=== PATIENT | female | born 1945 | race Caucasian/White ===

== ENCOUNTER 2017-05-17 20:41 | Emergency (ER) | payer MEDICARE, OTHER ==
[2017-05-17 20:55] VITALS: TEMP 98.5
--- NOTE | 2017-05-17 22:28 | PDOC ---
History of Present Illness - General History Source: Patient Exam Limitations: No Limitations - History of Present Illness Initial Comments: The patient is a 71 yo F with a PMHx significant for HTN, dementia, HLD, cervical cancer (2005), and lymphoma (2007) who presents with a nonproductive cough for a few days. The patient is a poor historian secondary to dementia. The patients family also notes the patient has been complaining of paroxysmal chest pain, palpitations and dizziness for the past 2 months. The patients family states the patient is less active than her baseline. The pt has also bene having a mild cough that was worsening over the past 2 days, it is nonproductive. As per the patients family, the patient has a home health aide. The patient denies fevers and chills. The patient denies nausea, vomiting, diarrhea and abdominal pain. The patient denies dysuria, hematuria, urgency and frequency. Family Hx: brain CA PCP: Dr. Larry Camara <Eliza Carter - Last Filed: 05/17/17 23:27> <Diana Lange - Last Filed: 05/18/17 06:09> <Sebastien Pavon - Last Filed: 05/18/17 16:18> - General Chief Complaint: Respiratory Stated Complaint: COUGH Time Seen by Provider: 05/17/17 22:16 Past History <Eliza Carter - Last Filed: 05/17/17 23:27> <Diana Lange - Last Filed: 05/18/17 06:09> - Past Medical History Anemia: No Asthma: No Cancer: Yes (S/P SPINE AND PELVIC CANCER.) Cardiac Disorders: No (RX 7 YEARS AGO) CVA: No COPD: No CHF: No Dementia: No Diabetes: No GI Disorders: No Disorders: No HTN: No Hypercholesterolemia: No Liver Disease: No Seizures: No Thyroid Disease: No - Surgical History Appendectomy: No Cholecystectomy: No Neurologic Surgery: Yes (2 SPINAL SURGERIES) Orthopedic Surgery: Yes - Psycho/Social/Smoking Cessation Hx Anxiety: No Suicidal Ideation: No Smoking Status: No Smoking History: Never smoked Have you smoked in the past 12 months: No Number of Cigarettes Smoked Daily: 0 Hx Alcohol Use: No Drug/Substance Use Hx: No Substance Use Type: None Hx Substance Use Treatment: No <Sebastien Pavon - Last Filed: 05/18/17 16:18> - Past Medical History Allergies/Adverse Reactions: Allergies Allergy/AdvReac Type Severity Reaction Status Date / Time No Known Drug Allergies Allergy Verified 05/17/17 20:53 Home Medications: Ambulatory Orders Acetaminophen [Tylenol .Extra-Strength -] 500 mg PO Q4H 05/17/15 Oxycodone HCl 15 mg PO PRN PRN 05/17/15 Oxycodone HCl [Roxicodone -] 10 mg PO Q6H PRN #60 tablet 05/19/15 Pantoprazole Sodium [Protonix] 40 mg PO DAILY #60 tablet. 05/19/15 Atorvastatin Ca [Lipitor] 40 mg PO HS 05/17/17 Ezetimibe [Zetia -] 10 mg PO DAILY 05/17/17 Metoprolol Tartrate [Lopressor -] 25 mg PO BID 05/17/17 Omeprazole 20 mg PO DAILY 05/17/17 Review of Systems - Review of Systems Able to Perform ROS?: Yes Comments:: ROS is limited secondary to patient's dementia. Constitutional - +generalized weakness. Pt denies Fever, Chills HEENT: denies vision changes, sore throat Respiratory: +cough Denies sob, hemoptysis Cardiac: +chest pain, palpitations and lightheadedness. denies leg swelling Abd/GI: denies abd pain, nausea, vomiting, blood per rectum, melena, diarrhea : denies dysuria, frequency, discharge Musculskelatal - denies back pain, joint swelling skin - denies bruising, erythema, rash neurological: denies headache, numbness, focal weakness, tingling, ataxia, weakness hematologic: denies anemia, easy bruising, easy bleeding <Sermania,Eliza - Last Filed: 05/17/17 23:27> *Physical Exam - Vital Signs Last Vital Signs Temp Pulse Resp BP Pulse Ox 98.5 F 106 H 20 134/73 100 05/17/17 20:53 05/17/17 20:53 05/17/17 20:53 05/17/17 20:53 05/17/17 20:53 - Physical Exam Comments: GENERAL: The patient is awake, alert, Nontoxic - in no acute distress. HEAD: Normocephalic, atraumatic. EYES: extraocular movements intact, sclera anicteric, conjunctiva clear. ENT: Normal voice, Moist mucous membranes. NECK: Normal range of motion, supple without lymphadenopathy, JVD, or masses. LUNGS: scant basilar crackles. No wheezes or rales, no acute respiratory distress HEART: Regular rate and rhythm, normal S1 and S2 without murmur, rub or gallop. ABDOMEN: Soft, nontender, normoactive bowel sounds. No guarding, no rebound. No masses. EXTREMITIES: Normal range of motion, no edema. No clubbing or cyanosis. No cords, erythema, or tenderness. NEUROLOGICAL: No facial assymetry, Normal speech, normal gait. PSYCH: Normal mood, normal affect. SKIN: Warm, Dry, normal turgor, no rashes or lesions noted. <Eliza Carter - Last Filed: 05/17/17 23:27> - Vital Signs Last Vital Signs Temp Pulse Resp BP Pulse Ox 98.5 F 106 H 20 134/73 100 05/17/17 20:53 05/17/17 20:53 05/17/17 20:53 05/17/17 20:53 05/17/17 20:53 <Diana Lange - Last Filed: 05/18/17 06:09> - Vital Signs Last Vital Signs Temp Pulse Resp BP Pulse Ox 98.5 F 106 H 20 134/73 100 05/17/17 20:53 05/17/17 20:53 05/17/17 20:53 05/17/17 20:53 05/17/17 20:53 <Sebastien Pavon - Last Filed: 05/18/17 16:18> Heart Score/ECG Review - ECG Impressions Comment:: 05/17/17 23:17 Twelve-lead EKG was performed and reviewed by me. There is normal sinus rhythm with a normal rate. Rate of 100 The intervals are normal. Nonspecific T wave abnormality <Sebastien Pavon - Last Filed: 05/18/17 16:18> ED Treatment Course - LABORATORY CBC & Chemistry Diagram: 05/17/17 23:40 05/17/17 23:40 - ADDITIONAL ORDERS Additional order review: Laboratory Results 05/18/17 05/17/17 05:00 23:40 Sodium 140 Potassium 4.1 Chloride 102 Carbon Dioxide 27 Anion Gap 11 BUN 22 H D Creatinine 0.8 D Creat Clearance w eGFR > 60 Random Glucose 140 H D Calcium 8.6 Total Bilirubin 0.2 AST 17 D ALT 23 D Alkaline Phosphatase 56 D Creatine Kinase 87 68 Troponin I < 0.02 < 0.02 Total Protein 6.0 L Albumin 3.2 L 05/17/17 23:40 RBC 3.94 D MCV 92.4 MCHC 33.4 RDW 15.6 D MPV 8.4 Neutrophils % 78.7 Lymphocytes % 12.9 D Monocytes % 5.9 Eosinophils % 2.3 D Basophils % 0.2 - RADIOLOGY Radiology Studies Ordered: Category Date Time Status CHEST PA & LAT [RAD] Stat Radiology 05/17/17 22:09 Taken - Medications Given in the ED: ED Medications Discontinued Medications Generic Name Dose Route Start Last Admin Trade Name Lee PRN Reason Stop Dose Admin Sodium Chloride 500 mls @ 500 mls/hr 05/17/17 22:51 05/17/17 23:44 Normal Saline - IV 05/17/17 23:50 500 mls/hr ASDIR STA Administration <Diana Lange - Last Filed: 05/18/17 06:09> - LABORATORY CBC & Chemistry Diagram: 05/17/17 23:40 05/17/17 23:40 <Sebastien Pavon - Last Filed: 05/18/17 16:18> Medical Decision Making - Medical Decision Making 05/17/17 23:00 71y F hx of dementia, htn, hl, hx of previous cervical ca, lymphoma in remote past presents with worsening nonproductive cough for a few days. Family also notes that she occasionally complaints of chest pain on the right side, she has not followed up with her PMD because she refuses. No associated fever/chills, hemoptysis, leg swelling. on exam the pt appars well, in no distress. lungs reeals mild scant rales at the bases. will r/o pna with cxr will obtain bsaic blood work, ekg screening ekg/troponin A portion of this note was documented by scribe services under my direction. I have reviewed the details of the note, within reason, and agree with the documentation with the following case summary and management plan written by me 05/18/17 01:45 Pts labs reviewed unremarkable pt current comfortable. awaitng 2nd troponin at 3am if neg, will dc the pt with zpac and pmd fu case signed out to dr. lange to fu with results and reassess the pt <Sebastien Pavon - Last Filed: 05/18/17 16:18> *DC/Admit/Observation/Transfer - Attestations Scribe Attestion: Documentation prepared by Eliza Carter, acting as medical lab tech instructor for Sebastien Pavon MD, MD/DO. <Eliza Carter - Last Filed: 05/17/17 23:27> - Discharge Dispostion Admit: No <Diana Lange - Last Filed: 05/18/17 06:09> <Sebastien Pavon - Last Filed: 05/18/17 16:18> Diagnosis at time of Disposition: Chest pain, Cough - Discharge Dispostion Disposition: HOME Condition at time of disposition: Stable - Referrals Referrals: Larry Camara [Primary Care Provider] - - Patient Instructions Printed Discharge Instructions: DI for Cough -- Adult
[2017-05-17] MEDS ORDERED: SODIUM CHLORIDE 500 ML IV STA (22:51)
[2017-05-17 23:44] LABS: BASOPHIL 0.2 % (0-2.0); EOSINOPHIL 2.3 % (0-4.5); MCH 30.8 pg (25.7-33.7); MCHC 33.4 g/dl (32.0-36.0); MEAN CELL VOLUME 92.4 fl (80-96); MEAN PLT VOLUME 8.4 fl (7.5-11.1); NEUTROPHILS 78.7 % (42.8-82.8); PLATELET COUNT 207 K/MM3 (134-434); RDW 15.6 % (11.6-15.6)
[2017-05-18 00:46] LABS: ALBUMIN 3.2 g/dl (3.4-5.0); ANION GAP 11 (8-16); BILIRUBIN,TOTAL 0.2 mg/dL (0.2-1.0); CALCIUM 8.6 mg/dL (8.5-10.1); CO2 27 mmol/L (21-32); CREATININE 0.8 mg/dL (0.55-1.02); GLUCOSE,RANDOM 140 mg/dL (74-106); SGPT/ALT 23 U/L (12-78)
[2017-05-18 00:49] LABS: ALK PHOS 56 U/L (45-117); CPK 68 IU/L (26-192); TROPONIN I < 0.02 ng/ml (0.00-0.05)
[2017-05-18 00:52] LABS: SGOT/AST 17 U/L (15-37)
[2017-05-18 05:55] LABS: TROPONIN I < 0.02 ng/ml (0.00-0.05)
[2017-05-18 05:56] LABS: CPK 87 IU/L (26-192)
[2017-05-18 06:24] VITALS: BP 128/57; PULSE 90
--- NOTE | 2017-05-18 12:53 | EKG ---
Test Reason : Blood Pressure : / mmHG Vent. Rate : 100 BPM Atrial Rate : 100 BPM P-R Int : 164 ms QRS Dur : 078 ms QT Int : 356 ms P-R-T Axes : 028 -15 009 degrees QTc Int : 459 ms NORMAL SINUS RHYTHM NONSPECIFIC T WAVE ABNORMALITY ABNORMAL ECG WHEN COMPARED WITH ECG OF 25-DEC-2013 12:41, T WAVE INVERSION NOW EVIDENT IN ANTERIOR LEADS Confirmed by MEME ALVARADO, MILLA ([id number]) on 05/18/2017 12:52:50 PM Referred By: Confirmed By:MILLA VALENTINE MD
== END 2017-05-18 06:32 | disposition home or self-care (01) ==
LOC: JER 20:41
PROC: 3E0337Z Introduction of Electrolytic and Water Balance Substance into Peripheral Vein, Percutaneous Approach (ICD-10-PCS; principal; 2017-05-17)
DX: R07.89 Other chest pain (principal); I10 Essential (primary) hypertension; F03.90 Unspecified dementia, unspecified severity, without behavioral disturbance, psychotic disturbance, mood disturbance, and anxiety; E78.00 Pure hypercholesterolemia, unspecified; Z85.41 Personal history of malignant neoplasm of cervix uteri; Z85.72 Personal history of non-Hodgkin lymphomas
CPT/HCPCS: 36415; 71020-TC; 80053; 84484; 85025; 93005; 93010; 96360; 99282-25

== ENCOUNTER 2020-06-02 18:49 | Inpatient (IN) | payer MEDICARE, OTHER ==
[2020-06-02 19:24] VITALS: BMI 21.4
--- NOTE | 2020-06-02 19:29 | PDOC ---
History of Present Illness - General Chief Complaint: Lightheaded Stated Complaint: WEAKNESS - History of Present Illness Initial Comments: 74 yo female with PMH of HTN, HLD, cervical cancer BIBEMS for a syncopal episode. Son says she was being helped walking back from the bathroom when she lost consciousness. She was unconscious for 1 minute, did not shake, did not have bowel/bladder incontinence, returned to baseline. She was held up by her son and did not hit her head or lose consciousness. She endorses abdominal pain with meals which had lead to poor oral intake. She endorses sob and nausea. She denies fevers, chills, martinez, cp, dysuria. She was seen earlier today at [facility] for headache and lethargy where she was given iv fluids and tylenol. Past History - Medical History Allergies/Adverse Reactions: Allergies Allergy/AdvReac Type Severity Reaction Status Date / Time No Known Drug Allergies Allergy Verified 05/17/17 20:53 Home Medications: Ambulatory Orders Acetaminophen [Tylenol .Extra-Strength -] 500 mg PO Q4H PRN 05/17/15 Pantoprazole Sodium [Protonix] 40 mg PO DAILY #60 tablet. 05/19/15 oxyCODONE HCL [Roxicodone -] 10 mg PO Q6H PRN #60 tablet 05/19/15 Atorvastatin Ca [Lipitor] 40 mg PO HS 05/17/17 Ezetimibe [Zetia -] 10 mg PO DAILY 05/17/17 Ascorbic Acid [Vitamin C -] 500 mg PO BID #28 tablet 01/22/20 Cholecalciferol (Vitamin D3) [Vitamin D3 -] 1,000 unit PO DAILY #28 tab 01/22/20 Zinc Sulfate [Orazinc -] 220 mg PO BID #28 capsule 01/22/20 Apixaban [Eliquis -] 2.5 mg PO BID #28 tablet 01/24/20 Tamsulosin HCl [Flomax -] 0.4 mg PO BID #60 cap.er.24h 01/24/20 Anemia: No Asthma: No Cancer: Yes (S/P SPINE AND PELVIC CANCER.; cervical CA) Cardiac Disorders: No (RX 7 YEARS AGO) CVA: No COPD: No CHF: No Dementia: No Diabetes: No GI Disorders: No Disorders: No HTN: No Hypercholesterolemia: No Liver Disease: No Seizures: No Thyroid Disease: No - Surgical History Abdominal Surgery: No Appendectomy: No Cardiac Surgery: No Cholecystectomy: No Lung Surgery: No Neurologic Surgery: Yes (2 SPINAL SURGERIES) Orthopedic Surgery: Yes - Reproductive History Is Patient Now?: No - Psycho-Social/Smoking History Smoking Status: No Smoking History: Unknown if ever smoked Have you smoked in the past 12 months: No Number of Cigarettes Smoked Daily: 0 - Substance Abuse Hx (Audit-C & DAST Scrn) How often the patient has a drink containing alcohol: Never Score: In Men: 4 or > Positive; In Women: 3 or > Positive: 0 Screen Result (Pos requires Nsg. Audit-10AR): Negative In the last yr the pt used illegal drug/Rx for NonMed reason: No Score: Yes response is considered Positive: 0 Screen Result (Positive result requires Nsg. DAST-10): Negative Review of Systems - Review of Systems Able to Perform ROS?: Yes (son translated) Constitutional: No: Chills, Fever HEENTM: No: Recent change in vision, Double Vision Respiratory: Yes: Shortness of Breath. No: Cough Cardiac (ROS): Yes: Lightheadedness, Syncope. No: Chest Pain, Palpitations, Chest Tightness ABD/GI: Yes: Poor Appetite, Poor Fluid Intake. No: Diarrhea, Vomiting : No: Burning, Dysuria, Hematuria Musculoskeletal: No: Joint Pain, Muscle Pain Integumentary: No: Dryness, Erythema, Flushing Neurological: No: Headache, Numbness, Tingling, Dizziness Psychiatric: No: Anxiety, Depression, Mood Swings Endocrine: No: Intolerance to Cold, Intolerance to Heat Hematologic/Lymphatic: No: Anemia, Easy Bruising *Physical Exam - Vital Signs Last Vital Signs Temp Pulse Resp BP Pulse Ox 98.1 F 94 H 18 97/62 98 06/02/20 19:21 06/02/20 19:21 06/02/20 19:21 06/02/20 19:21 06/02/20 19:21 - Physical Exam General Appearance: Yes: Appropriately Dressed. No: Apparent Distress HEENT: positive: Normal Voice. negative: EOMI Neck: negative: Tender, Rigid Respiratory/Chest: positive: Lungs Clear, Normal Breath Sounds. negative: Respiratory Distress Cardiovascular: positive: Regular Rhythm, Regular Rate, S1, S2. negative: Edema, JVD, Murmur Gastrointestinal/Abdominal: positive: Flat, Soft. negative: Tender Musculoskeletal: positive: Normal Inspection. negative: CVA Tenderness Extremity: positive: Normal Capillary Refill, Normal Inspection, Normal Range of Motion Integumentary: positive: Normal Color, Dry, Warm Neurologic: positive: hog killer II-XII NML intact, Fully Oriented, Alert, Normal Mood/Affect, Motor Strength 01/31 ED Treatment Course - LABORATORY CBC & Chemistry Diagram: 06/02/20 16:04 06/02/20 23:34 Medical Decision Making - Medical Decision Making 74 yo female with PMH of HTN, HLD, Cervical Cancer presents after a syncopal episode with poor oral intake. DDx: orthostatic hypotension, cardiac etiology, stroke, tia NIH Stroke = 0 EKG: normal axis, normal intervals, regular rate and rhythm. WBC 13.4 Creatinine 2.1 UA- positive LE, positive Nitrites, positive bacteria CT Head/Cervical- no acute processes Chest Xray- no acute processes Tx: -750mL IV fluids - 1gram IV ceftriaxone Admitted: UTI, LUCILLE, Syncope, Poor Oral Intake 06/03/20 01:44 Discharge - Discharge Information Problems reviewed: Yes Clinical Impression/Diagnosis: UTI (urinary tract infection), Syncope, LUCILLE (acute kidney injury) Condition: Stable - Admission Yes - Follow up/Referral - Patient Discharge Instructions - Post Discharge Activity
[2020-06-02] MEDS ORDERED: SODIUM CHLORIDE 0.9% 500 ML INFUS.BAG IV ONE ×2 (19:36→22:29)
[2020-06-02] MEDS ORDERED: POLYETHYLENE GLYCOL 3350 119 GM BTL PO ONE (20:21)
[2020-06-02 21:21] LABS: HEMATOCRIT 37.5 % (32.4-45.2); HEMOGLOBIN 12.4 GM/dL (10.7-15.3); MCH 29.3 pg (25.7-33.7); MEAN CELL VOLUME 88.7 fl (80-96); MEAN PLT VOLUME 10.3 fl (7.5-11.1); PLATELET COUNT 184 K/MM3 (134-434); RBC 4.23 M/mm3 (3.60-5.2); WHITE BLOOD COUNT 13.4 K/mm3 (4.0-10.0)
--- NOTE | 2020-06-02 21:34 | PDOC ---
Documentation entered by Phani Bassett SCRIBE, acting as scribe for Diana Mcghee MD. Diana Mcghee MD: This documentation has been prepared by the scribe, Phani Bassett SCRIBE, under my direction and personally reviewed by me in its entirety. I confirm that the documentation accurately reflects all work, treatment, procedures, and medical decision making performed by me. Attending Attestation - Resident Resident Name: Galen Baires - ED Attending Attestation I have performed the following: I have examined & evaluated the patient, The case was reviewed & discussed with the resident, I agree w/resident's findings & plan, Exceptions are as noted - HPI HPI: 06/02/20 19:53 The patient is a 74 year old female with a significant past medical history of HTN, dementia, HLD, cervical cancer (2005), and lymphoma (2007 and again in June 2019) who presents to the emergency department, [facility], for evaluation of dizziness and syncopal episode today. Per EMS, the patient was standing with assistance from her son when she syncopized and lost consciousness for about one minute. She notes taking her first oxycodone dose today after having a headache and lethargy. The patient endorses abdominal pain worsened with eating, nausea, and shortness of breath. The patient denies head/neck trauma, chest/back pain, cough, and shortness of breath. Denies fever, chills, vomiting, and/or any GI symptoms. Denies any symptoms. Denies any other symptoms. Allergies: NKDA - Physicial Exam PE: 06/02/20 19:33 GENERAL: The patient is awake, alert, and fully oriented, Nontoxic - in no acute distress. HEAD: +Right occiput pain Normocephalic, atraumatic. EYES: extraocular movements intact, sclera anicteric, conjunctiva clear. ENT: Normal voice, Moist mucous membranes. NECK: +minimal neck/c spine tenderness Normal range of motion, supple without lymphadenopathy, JVD, or masses. LUNGS: Breath sounds equal, clear to auscultation bilaterally. No wheezes, no crackles, no rales. HEART: Regular rate and rhythm, normal S1 and S2 without murmur, rub or gallop. ABDOMEN: Soft, nontender, normoactive bowel sounds. No guarding, no rebound. No masses. EXTREMITIES: Normal range of motion, no edema. No clubbing or cyanosis. No cords, erythema, or tenderness. NEUROLOGICAL: No facial asymmetry, Normal speech, normal gait. PSYCH: Normal mood, normal affect. SKIN: Warm, Dry, normal turgor, no rashes or lesions noted. - Medical Decision Making 06/02/20 20:19 Pt states that she was on her son's bed and struck her right back of her head and neck when she got dizzy after taking oxycodone. Pt has low BP normally. Her BP likely dropped further. Pt reports that she has not been eating well, as she has no appetite. She has no abd pain, but she complains of constipation. 06/02/20 21:32 WBC is elevated likely due to the stress of the fall. Pt has no fever and no source of infection. EKG is NSR; unchanged from her previous. 06/03/20 01:48 Pt will be admitted for UTI, syncope and renal insufficiency and dehydration Heart Score/ECG Review - ECG Intrepretation Rhythm: Regular Rhythm - [place]: Normal - P and ME Prominent R with upright T in V1 (true posterior ND): No Delta Wave(s) Present: No WPW: No - ST and T Early Repolarization: No Non Specific ST-T Wave changes: No Flattened T Waves: Yes Prolonged Q-T Interval: No - ECG Impressions Normal ECG: Yes Non-specific ST Elevation: No Ischemic Changes: Yes (inferior; old findings) Discharge - Discharge Information Problems reviewed: Yes Clinical Impression/Diagnosis: LUCILLE (acute kidney injury) UTI (urinary tract infection) Qualifiers: Urinary tract infection type: acute cystitis Hematuria presence: without hematuria Qualified Code(s): N30.00 - Acute cystitis without hematuria Syncope Qualifiers: Encounter type: initial encounter Condition: Stable - Follow up/Referral - Patient Discharge Instructions - Post Discharge Activity
[2020-06-02 22:06] LABS: ALBUMIN 2.8 g/dl (3.4-5.0); ALK PHOS 131 U/L (45-117); BILIRUBIN,TOTAL 0.8 mg/dL (0.2-1); BLOOD UREA NITROGEN 24.5 mg/dL (7-18); CALCIUM 9.1 mg/dL (8.5-10.1); CHLORIDE 105 mmol/L (98-107); CO2 22 mmol/L (21-32); GLUCOSE,RANDOM 122 mg/dL (74-106); SGOT/AST 63 U/L (15-37); SODIUM 134 mmol/L (136-145); TOT PROT 7.3 g/dl (6.4-8.2)
[2020-06-02 22:41] LABS: ANION GAP 8 MMOL/L (8-16); SGPT/ALT 27 U/L (13-61)
[2020-06-02 22:45] LABS: POTASSIUM 7.3 mmol/L (3.5-5.1)
[2020-06-03 00:19] LABS: BILIRUBIN,TOTAL 0.4 mg/dL (0.2-1); BLOOD UREA NITROGEN 26.1 mg/dL (7-18); CALCIUM 9.2 mg/dL (8.5-10.1); CREATININE 2.1 mg/dL (0.55-1.3); POTASSIUM 4.8 mmol/L (3.5-5.1); TOT PROT 6.7 g/dl (6.4-8.2)
[2020-06-03 00:31] LABS: EPI CELLS 15 /uL (0-25.1); HYALINE CASTS 2 /uL (0-3.1); PH,URINE 5.5 (5.0-8.0); URINE APPEARANCE CLOUDY; URINE BACTERIA 5102 /uL (0-1359); URINE BILIRUBIN NEGATIVE (NEGATIVE); URINE COLOR YELLOW; URINE GLUCOSE (UA) NEGATIVE (NEGATIVE); URINE KETONE NEGATIVE (NEGATIVE); URINE LEUK ESTERASE 2+ (NEGATIVE); URINE NITRITE POSITIVE (NEGATIVE); URINE PROTEIN 2+ (NEGATIVE); URINE RBC 23 /uL (0-23.9); URINE WBC 1391 /uL (0-25.8)
[2020-06-03] MEDS ORDERED: CEFTRIAXONE 1,000 MG in DEXTROSE 5%-WATER - 50 ML IVPB ONE (00:42)
[2020-06-03] MEDS ORDERED: CEFTRIAXONE 1 GM/50 ML BAG ONE (00:50)
[2020-06-03] MEDS ORDERED: SODIUM CHLORIDE 0.9% 500 ML INFUS.BAG IV ONE (02:07)
--- NOTE | 2020-06-03 02:21 | PN ---
Teaching Attending Note Name of Resident: Ana Luisa Canales ATTENDING PHYSICIAN STATEMENT I saw and evaluated the patient. I reviewed the resident's note and discussed the case with the resident. I agree with the resident's findings and plan as documented. SUBJECTIVE: 74yoF with h/o COVID pneumonia December 2019, HTN, HLD, dementia, recurrent lymphoma, and cervical cancer who presents after a witnessed syncopal episode. Patient was reportedly seen at [facility] on 06/02 for lethargy and headache and was discharged after fluids and Tylenol. She took a dose of oxycodone and afterwards she lost consciousness while ambulating from the bathroom. Her son caught her before she fell. No head trauma, abnormal movements, or incontinence. Patient has been complaining of poor appetite and PO intake recently as well as post prandial abdominal pain. Currently complaining of back pain. Denies fever, chills, dysuria, urinary frequency, palpitations, chest pain, SOB. Patient was at baseline mental status on arrival to the ED. Notable tachycardic to 120, BP 98/72. Labs show WBC 13.4, creatinine 2.1 from baseline around 0.8. UA grossly positive. CT head and C-spine showed no acute findings. She received 750cc fluid and ceftriaxone and is admitted for further work up and management. OBJECTIVE: Vital Signs - 24 hr 06/02/20 06/03/20 19:21 00:36 Temperature 98.1 F 99.3 F Pulse Rate 94 H Pulse Rate [ 120 H Right Apical] Respiratory 18 20 Rate Blood Pressure 97/62 Blood Pressure 98/72 [Left Arm] O2 Sat by Pulse 98 98 Oximetry (%) EXAM: Gen: elderly woman, uncomfortable appearing but in no acute distress. Awake and alert HEENT: dry mucous membranes CV: RRR, tachycardic, no MRG appreciated Resp: Unlabored, CTAB Abd: Distended but soft. Diffuse tenderness to palpation, worse in lower abdomen, without rebound/guarding Ext: No edema Laboratory Results - last 24 hr 06/02/20 06/02/20 06/02/20 16:04 16:04 16:04 WBC 13.4 H RBC 4.23 Hgb 12.4 Hct 37.5 D MCV 88.7 MCH 29.3 MCHC 33.0 RDW 15.0 Plt Count 184 D MPV 10.3 Sodium 134 L Potassium 7.3 H* Chloride 105 Carbon Dioxide 22 Anion Gap 8 BUN 24.5 H Creatinine 2.0 H Est GFR (CKD-EPI)AfAm 28.20 Est GFR (CKD-EPI)NonAf 24.33 Random Glucose 122 H Calcium 9.1 Total Bilirubin 0.8 AST 63 H ALT 27 Alkaline Phosphatase 131 H Creatine Kinase 252 H Creatine Kinase Index No Result Required. CK-MB (CK-2) < 1.0 Troponin I < 0.02 Total Protein 7.3 Albumin 2.8 L Lipase 43 L Urine Color Urine Appearance Urine pH Ur Specific [place] Urine Protein Urine Glucose (UA) Urine Ketones Urine Blood Urine Nitrite Urine Bilirubin Urine Urobilinogen Ur Leukocyte Esterase Urine WBC (Auto) Urine RBC (Auto) Urine Casts (Auto) U Epithel Cells (Auto) Urine Bacteria (Auto) 06/02/20 06/03/20 23:34 00:20 WBC RBC Hgb Hct MCV MCH MCHC RDW Plt Count MPV Sodium 141 Potassium 4.8 Chloride 107 Carbon Dioxide 24 Anion Gap 10 BUN 26.1 H Creatinine 2.1 H Est GFR (CKD-EPI)AfAm 26.58 Est GFR (CKD-EPI)NonAf 22.93 Random Glucose 135 H Calcium 9.2 Total Bilirubin 0.4 AST 10 L ALT 23 Alkaline Phosphatase 135 H Creatine Kinase Creatine Kinase Index CK-MB (CK-2) Troponin I Total Protein 6.7 Albumin 3.0 L Lipase Urine Color Yellow Urine Appearance Cloudy Urine pH 5.5 Ur Specific [place] 1.014 Urine Protein 2+ H Urine Glucose (UA) Negative Urine Ketones Negative Urine Blood Trace Urine Nitrite Positive H Urine Bilirubin Negative Urine Urobilinogen 1.0 Ur Leukocyte Esterase 2+ H Urine WBC (Auto) 1391 Urine RBC (Auto) 23 Urine Casts (Auto) 2 U Epithel Cells (Auto) 15 Urine Bacteria (Auto) 5102 ASSESSMENT AND PLAN: 74yoF with h/o COVID pneumonia December 2019, HTN, HLD, dementia,lymphoma, and cervical cancer who presents after a witnessed syncopal episode. Syncope; low BP Broad differential, high suspicion for orthostatic syncope as she appears dehydrated on exam in setting of sepsis and poor PO intake Low BP noted, was seen during her prior admission as well - baseline vs secondary to dehydration Oxycodone dose prior to syncope may also have contributed Continues to be tachycardic in 110s-120s despite fluids, will repeat EKG to assess rhythm - check orthostatic vitals - has already received 750cc - repeat EKG - tele, troponins - additional 500cc bolus and maintenance fluids pending improvement in PO intake - avoid opioids Sepsis secondary to UTI Leukocytosis, tachycardia with grossly positive UA s/p ceftriaxone in ED - urine culture - continue empiric ceftriaxone LUCILLE Creatinine 2.1 from baseline 0.8 h/o urinary retention and hydronephrosis on prior admission Abd distended and tender - r/o urinary retention Likely also has prerenal component given dehydration as above - renal US - bladder scan PRN - FENa - avoid nephrotoxic agents Abd pain, poor oral intake Possibly related to UTI/retention as above Consider further evaluation if symptoms continue and above work up is non diagnostic Back pain h/o thoracolumbar spine compression fractures - avoid opioids - lidocaine patch, Tylenol PRN DVT ppx: heparin subq
[2020-06-03] MEDS ORDERED: SODIUM CHLORIDE 500 ML IV STA (03:06)
[2020-06-03] MEDS ORDERED: LIDOCAINE 5% TOPICAL PATCH TP ONE (03:34)
--- NOTE | 2020-06-03 03:35 | HP ---
CHIEF COMPLAINT: Syncopal episode HISTORY OF PRESENT ILLNESS: Pt is a 74 year old female with PMHx of HTN, HLD, dementia, cervical cancer, lymphoma and dementia presenting after a witnessed syncopal episode, with LOC with no trauma to head or neck. Pt was seen prior to this at [facility] for headache and was treated with fluids, tylenol and given oxycodone. Upon returning to home, pt was walking with son when she felt dizzy and light headed and had syncopal episode while walking to bathroom. Pt also complaining of abdominal pain which increses after eating, nausea and SOB. Pt denies any fever, chills, vomiting, diarrhea, constipation, CP. ER course was notable for: (1) Tachy 120, BP 90s/50s (2) Cr found to be 2, baseline 0.8 - received 750 cc fluids (3) UA positive treated with Ceftriaxone PAST MEDICAL HISTORY: As stated above PAST SURGICAL HISTORY: Unable to obtain Social History: unable to obtain Allergies No Known Drug Allergies Allergy (Verified 05/17/17 20:53) HOME MEDICATIONS: Home Medications Medication Instructions Recorded Acetaminophen [Tylenol 500 mg PO Q4H PRN 05/17/15 .Extra-Strength -] Pantoprazole Sodium [Protonix] 40 mg PO DAILY #60 tablet. 05/19/15 oxyCODONE HCL [Roxicodone -] 10 mg PO Q6H PRN #60 tablet 05/19/15 Atorvastatin Ca [Lipitor] 40 mg PO HS 05/17/17 Ezetimibe [Zetia -] 10 mg PO DAILY 05/17/17 Ascorbic Acid [Vitamin C -] 500 mg PO BID #28 tablet 01/22/20 Cholecalciferol (Vitamin D3) 1,000 unit PO DAILY #28 tab 01/22/20 [Vitamin D3 -] Zinc Sulfate [Orazinc -] 220 mg PO BID #28 capsule 01/22/20 Apixaban [Eliquis -] 2.5 mg PO BID #28 tablet 01/24/20 Tamsulosin HCl [Flomax -] 0.4 mg PO BID #60 cap.er.24h 01/24/20 REVIEW OF SYSTEMS CONSTITUTIONAL: Absent: fever, chills, diaphoresis, generalized weakness, malaise, loss of appetite, weight change HEENT: Absent: rhinorrhea, nasal congestion, throat pain, throat swelling, difficulty swallowing, mouth swelling, ear pain, eye pain, visual changes CARDIOVASCULAR: Absent: chest pain, syncope, palpitations, irregular heart rate, lightheadedness, peripheral edema RESPIRATORY: Absent: cough, shortness of breath, dyspnea with exertion, orthopnea, wheezing, stridor, hemoptysis GASTROINTESTINAL: Absent: abdominal pain, abdominal distension, nausea, vomiting, diarrhea, constipation, melena, hematochezia GENITOURINARY: Absent: dysuria, frequency, urgency, hesitancy, hematuria, flank pain, genital pain, suprapubic pain MUSCULOSKELETAL: Absent: myalgia, arthralgia, joint swelling, back pain, neck pain SKIN: Absent: rash, itching, pallor HEMATOLOGIC/IMMUNOLOGIC: Absent: easy bleeding, easy bruising, lymphadenopathy, frequent infections ENDOCRINE: Absent: unexplained weight gain, unexplained weight loss, heat intolerance, cold intolerance NEUROLOGIC: Absent: headache, focal weakness or paresthesias, dizziness, unsteady gait, seizure, mental status changes, bladder or bowel incontinence PSYCHIATRIC: Absent: anxiety, depression, suicidal or homicidal ideation, hallucinations. PHYSICAL EXAMINATION Vital Signs - 24 hr 06/02/20 06/03/20 19:21 00:36 Temperature 98.1 F 99.3 F Pulse Rate 94 H Pulse Rate [ 120 H Right Apical] Respiratory 18 20 Rate Blood Pressure 97/62 Blood Pressure 98/72 [Left Arm] O2 Sat by Pulse 98 98 Oximetry (%) GENERAL: Awake, alert, and fully oriented, in no acute distress. HEAD: Normal with no signs of trauma. EYES: Pupils equal, round and reactive to light, extraocular movements intact, sclera anicteric, conjunctiva clear. No lid lag. EARS, NOSE, THROAT: Ears normal, nares patent, oropharynx clear without exudates. Moist mucous membranes. NECK: Normal range of motion, supple without lymphadenopathy, JVD, or masses. LUNGS: Breath sounds equal, clear to auscultation bilaterally. No wheezes, and no crackles. No accessory muscle use. HEART: Regular rate and rhythm, normal S1 and S2 without murmur, rub or gallop. ABDOMEN: Soft, nontender, normoactive bowel sounds, no guarding, no rebound, no masses. No hepatomegaly or splenomegaly. Abdomen slightly distended MUSCULOSKELETAL: Normal range of motion at all joints. No bony deformities or tenderness. No CVA tenderness. UPPER EXTREMITIES: 2+ pulses, warm, well-perfused. No cyanosis. No clubbing. No peripheral edema. LOWER EXTREMITIES: 2+ pulses, warm, well-perfused. No calf tenderness. No peripheral edema. NEUROLOGICAL: Cranial nerves II-XII intact. Normal speech. Normal gait. PSYCHIATRIC: Cooperative. Good eye contact. Appropriate mood and affect. SKIN: Warm, dry, normal turgor, no rashes or lesions noted, normal capillary refill. : suprapubic tenderness, no CVA tenderness Laboratory Results - last 24 hr 06/02/20 06/02/20 06/02/20 16:04 16:04 16:04 WBC 13.4 H RBC 4.23 Hgb 12.4 Hct 37.5 D MCV 88.7 MCH 29.3 MCHC 33.0 RDW 15.0 Plt Count 184 D MPV 10.3 Sodium 134 L Potassium 7.3 H* Chloride 105 Carbon Dioxide 22 Anion Gap 8 BUN 24.5 H Creatinine 2.0 H Est GFR (CKD-EPI)AfAm 28.20 Est GFR (CKD-EPI)NonAf 24.33 Random Glucose 122 H Calcium 9.1 Total Bilirubin 0.8 AST 63 H ALT 27 Alkaline Phosphatase 131 H Creatine Kinase 252 H Creatine Kinase Index No Result Required. CK-MB (CK-2) < 1.0 Troponin I < 0.02 Total Protein 7.3 Albumin 2.8 L Lipase 43 L Urine Color Urine Appearance Urine pH Ur Specific Dawson Urine Protein Urine Glucose (UA) Urine Ketones Urine Blood Urine Nitrite Urine Bilirubin Urine Urobilinogen Ur Leukocyte Esterase Urine WBC (Auto) Urine RBC (Auto) Urine Casts (Auto) U Epithel Cells (Auto) Urine Bacteria (Auto) 06/02/20 06/03/20 23:34 00:20 WBC RBC Hgb Hct MCV MCH MCHC RDW Plt Count MPV Sodium 141 Potassium 4.8 Chloride 107 Carbon Dioxide 24 Anion Gap 10 BUN 26.1 H Creatinine 2.1 H Est GFR (CKD-EPI)AfAm 26.58 Est GFR (CKD-EPI)NonAf 22.93 Random Glucose 135 H Calcium 9.2 Total Bilirubin 0.4 AST 10 L ALT 23 Alkaline Phosphatase 135 H Creatine Kinase Creatine Kinase Index CK-MB (CK-2) Troponin I Total Protein 6.7 Albumin 3.0 L Lipase Urine Color Yellow Urine Appearance Cloudy Urine pH 5.5 Ur Specific Dawson 1.014 Urine Protein 2+ H Urine Glucose (UA) Negative Urine Ketones Negative Urine Blood Trace Urine Nitrite Positive H Urine Bilirubin Negative Urine Urobilinogen 1.0 Ur Leukocyte Esterase 2+ H Urine WBC (Auto) 1391 Urine RBC (Auto) 23 Urine Casts (Auto) 2 U Epithel Cells (Auto) 15 Urine Bacteria (Auto) 5102 ASSESSMENT/PLAN: 74 year old female with pmhx of HTN, HLD, dementia, cervical cancer, lymphoma and dementia presenting after a witnessed syncopal episode, with LOC with no trauma to head or neck admitted for sepsis secondary to UTI vs syncope. #Sepsis secondary to UTI -Tachy 120, WBC count 13.4 with known source (UTI) -Could have contributed to syncopal episode -Being treated with Rocephin 1g -UCx and BCx pending -Lactate; trend if initial positive -Abdomen slightly distended; serial abdominal exam - if distension or abdominal pain persists or worsens recommend CT scan #Syncope -Likely secondary to dehydration, poor PO intake, poor nutritional status with hx of malignancy -Orthostatic vitals -Rec'd 750 cc in ED, 500cc more by primary team; 50cc/hr NS afterwards -Repeat trop -Repeat EKG in AM #LUCILLE -likely secondary to dehydration -orthostatics, fluids on -follow Creatinine -Consulted renal (Dr. Montoya) -Bladder scan and renal ultrasound pending #Low BP -receiving fluids -chronically low BP #Hx of malignancy -lymphoma, cervical CA -follow up if she is following outpt for management #Hx of COVID -COVID in last admission, complicated with ARF FEN 50cc/hr NS monitor electrolytes Salt controlled diet DVT ppx: Heparin Dispo Tele. Follow up urine cultures, blood cultures, renal ultrasound. Repeat EKG in AM. Trend lactate if initial elevated Family Medical History Family History: As Documented Visit type - Medication Review Med list reviewed for High Risk Meds patients 65 and older: No - Emergency Visit Emergency Visit: Yes ED Registration Date: 06/03/20 Care time: The patient presented to the Emergency Department on the above date and was hospitalized for further evaluation of their emergent condition. - New Patient This patient is new to me today: No - Critical Care Critical Care patient: No ATTENDING PHYSICIAN STATEMENT I saw and evaluated the patient. I reviewed the resident's note and discussed the case with the resident. I agree with the resident's findings and plan as documented. SUBJECTIVE: OBJECTIVE: ASSESSMENT AND PLAN:
[2020-06-03] MEDS ORDERED: SODIUM CHLORIDE 1,000 ML IV SCH ×2 (04:00→12:00)
[2020-06-03] MEDS ORDERED: ACETAMINOPHEN 1000 MG/100 ML VIAL (NON FORMULARY) IVPB ONE (04:12)
[2020-06-03] MEDS ORDERED: HEPARIN NA (PORCINE) 5,000 UNITS/ML 1ML VIAL ONE ×2 (04:21→14:10)
[2020-06-03] MEDS ORDERED: ACETAMINOPHEN INJECTION 100 ML IVPB ONE (04:21)
[2020-06-03] MEDS ORDERED: LIDOCAINE 5% TOPICAL PATCH ONE (04:22)
[2020-06-03] MEDS: HEPARIN NA (PORCINE) 5,000 UNITS/ML 1ML VIAL SQ SCH ×3 (04:27→23:07)
[2020-06-03 05:42] LABS: BASO % 0.2 % (0-2.0); EOS % 0.1 % (0-4.5); HEMATOCRIT 32.7 % (32.4-45.2); HEMOGLOBIN 10.8 GM/dL (10.7-15.3); LYMPH % 1.9 % (8-40); MCH 29.2 pg (25.7-33.7); MCHC 33.1 g/dl (32.0-36.0); MEAN CELL VOLUME 88.3 fl (80-96); MEAN PLT VOLUME 9.9 fl (7.5-11.1); MONO % 6.9 % (3.8-10.2); NEUT % 90.9 % (42.8-82.8); PLATELET COUNT 183 K/MM3 (134-434); RBC 3.71 M/mm3 (3.60-5.2); RDW 15.1 % (11.6-15.6); WHITE BLOOD COUNT 10.3 K/mm3 (4.0-10.0)
[2020-06-03 06:04] LABS: ALBUMIN 2.3 g/dl (3.4-5.0); ALK PHOS 117 U/L (45-117); BILIRUBIN,TOTAL 0.5 mg/dL (0.2-1); CALCIUM 7.4 mg/dL (8.5-10.1); CHLORIDE 111 mmol/L (98-107); CO2 18 mmol/L (21-32); CREATININE 1.7 mg/dL (0.55-1.3); GLUCOSE,RANDOM 102 mg/dL (74-106); SGOT/AST 51 U/L (15-37); SODIUM 137 mmol/L (136-145); TOT PROT 6.1 g/dl (6.4-8.2)
[2020-06-03 06:43] LABS: ANION GAP 8 MMOL/L (8-16); SGPT/ALT 22 U/L (13-61)
[2020-06-03 06:44] LABS: POTASSIUM 7.3 mmol/L (3.5-5.1)
[2020-06-03 07:11] LABS: ALBUMIN 2.3 g/dl (3.4-5.0); ALK PHOS 117 U/L (45-117); ANION GAP 11 MMOL/L (8-16); BILIRUBIN,TOTAL 0.3 mg/dL (0.2-1); CALCIUM 7.5 mg/dL (8.5-10.1); CHLORIDE 112 mmol/L (98-107); CO2 19 mmol/L (21-32); CREATININE 1.7 mg/dL (0.55-1.3); GLUCOSE,RANDOM 110 mg/dL (74-106); POTASSIUM 3.5 mmol/L (3.5-5.1); SGOT/AST 14 U/L (15-37); SGPT/ALT 18 U/L (13-61); SODIUM 142 mmol/L (136-145); TOT PROT 5.4 g/dl (6.4-8.2)
--- NOTE | 2020-06-03 11:46 | CON.NEP ---
Consult Consult Specialty:: Nephrology Referred by:: ED Reason for Consultation:: LUCILLE - History of Present Illness Chief Complaint: Syncope History of Present Illness: This is a 74 year old woman with history of hypertension, hyperlipidemia, dementia, lymphoma, cervicial cancer, hx of COVID 19 who presented with syncope and found to have LUCILLE. Pt had previous admission during which she has LUCILLE that improved with IV fluids and yang placement. Seen and examined at the bedside. Son at the bedside. She is awake and alert, offers no acute complaints. She denies any sob, cp, fever, chills, abdominal pain, N/V/D. She was taking NSAIDs at home. She was recently in [facility] ED for back pain. 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 05/19/15 oxyCODONE HCL [Roxicodone -] 10 mg PO Q6H PRN #60 tablet 05/19/15 Atorvastatin Ca [Lipitor] 40 mg PO HS 05/17/17 Ezetimibe [Zetia -] 10 mg PO DAILY 05/17/17 Ascorbic Acid [Vitamin C -] 500 mg PO BID #28 tablet 01/22/20 Cholecalciferol (Vitamin D3) [Vitamin D3 -] 1,000 unit PO DAILY #28 tab 01/22/20 Zinc Sulfate [Orazinc -] 220 mg PO BID #28 capsule 01/22/20 Apixaban [Eliquis -] 2.5 mg PO BID #28 tablet 01/24/20 Tamsulosin HCl [Flomax -] 0.4 mg PO BID #60 cap.er.24h 04/27/20 Family Medical History Family History: Unremarkable Review of Systems - Review of Systems Constitutional: reports: No Symptoms Eyes: reports: No Symptoms HENT: reports: No Symptoms Neck: reports: No Symptoms Cardiovascular: reports: No Symptoms Respiratory: reports: No Symptoms Gastrointestinal: reports: No Symptoms Genitourinary: reports: No Symptoms Musculoskeletal: reports: No Symptoms Integumentary: reports: No Symptoms Neurological: reports: No Symptoms Endocrine: reports: No Symptoms Nephrology Consult - Height Height: 5 ft - Weight Weight: 49.895 kg - BMI Body Mass Index (BMI): 21.4 - Lab Results CBC,BMP: CBC, BMP 06/03/20 05:25 06/03/20 06:04 Anion Gap: Anion Gap Anion Gap 11 MMOL/L (8-16) 06/03/20 06:04 - Physical Examination Vital Signs: Vital Signs Temperature 98.5 F 06/03/20 07:15 Pulse Rate 109 H 06/03/20 07:15 Respiratory Rate 18 06/03/20 07:15 Blood Pressure 118/75 06/03/20 07:15 O2 Sat by Pulse Oximetry (%) 99 06/03/20 07:15 Constitutional: Yes: Well Nourished, No Distress, Calm, Thin Eyes: Yes: Conjunctiva Clear HENT: Yes: Atraumatic Neck: Yes: Supple Cardiovascular: Yes: Regular Rate and Rhythm Respiratory: Yes: Regular, CTA Bilaterally. No: Rales, Rhonchi, SOB Gastrointestinal: Yes: Soft, Distention Renal/: Yes: Bladder Distention. No: CVA Tenderness - Left, CVA Tenderness - Right, Yang Present Extremities: No: Cold, Cool, Cyanosis, Erythema Edema: No Neurological: Yes: Alert Assessment/Plan 74 year old woman with history of hypertension, hyperlipidemia, dementia, lymphoma, cervicial cancer, hx of COVID 19 who presented with syncope and found to have LUCILLE. 1. Acute kidney injury from volume depletion vs. obstruction 2. Syncope 3. Hypertension 4. Hyperlipidemia 5. Leukocytosis Check urine studies for FeNa, UPCR Renal US to r/o obstruction Continue hydration with isotonic saline start oral sodium bicarbonate 650mg daily Check orthostatics fall precautions if pt has urinary retention will need yang catheter. follow up blood cultures Check urine cultures Thank you Aleks Rodríguez DO
[2020-06-03] MEDS ORDERED: TAMSULOSIN HCL 0.4 MG CAP ONE (13:17)
[2020-06-03] MEDS: TAMSULOSIN HCL 0.4 MG CAP PO SCH (13:17)
--- NOTE | 2020-06-03 13:52 | CON.CARD ---
Consult Consult Specialty:: Cardiology Reason for Consultation:: syncope - History of Present Illness History of Present Illness: 74yoF with h/o HTN, HLD, dementia, recurrent lymphoma, and cervical cancer who presents after a syncopal episode. Patient was reportedly seen at [facility] on 06/02 for lethargy and headache and was discharged after fluids and Tylenol. She took a dose of oxycodone and afterwards she lost consciousness while ambulating from the bathroom. Her son caught her before she fell. No head trauma, abnormal movements, or incontinence. Patient has been complaining of poor appetite and PO intake recently as well as post prandial abdominal pain. Currently complaining of back pain. Denies fever, chills, dysuria, urinary frequency, palpitations, chest pain, SOB. Patient was at baseline mental status on arrival to the ED. Notable tachycardic to 120, BP 98/72. Labs show WBC 13.4, creatinine 2.1 from baseline around 0.8. UA grossly positive. CT head and C-spine showed no acute findings. She received 750cc fluid and ceftriaxone and is admitted for further work up and management. CXR showed CMG and clear lungs and Renal sono with bilateral hydronephrosis. 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 05/19/15 oxyCODONE HCL [Roxicodone -] 10 mg PO Q6H PRN #60 tablet 05/19/15 Atorvastatin Ca [Lipitor] 40 mg PO HS 05/17/17 Ezetimibe [Zetia -] 10 mg PO DAILY 05/17/17 Ascorbic Acid [Vitamin C -] 500 mg PO BID #28 tablet 01/22/20 Cholecalciferol (Vitamin D3) [Vitamin D3 -] 1,000 unit PO DAILY #28 tab 01/22/20 Zinc Sulfate [Orazinc -] 220 mg PO BID #28 capsule 01/22/20 Apixaban [Eliquis -] 2.5 mg PO BID #28 tablet 01/24/20 Tamsulosin HCl [Flomax -] 0.4 mg PO BID #60 cap.er.24h 01/24/20 Family Medical History Family History: Unremarkable Review of Systems - Review of Systems Constitutional: denies: Chills, Fever Eyes: reports: No Symptoms HENT: reports: No Symptoms Neck: reports: No Symptoms Cardiovascular: denies: Chest Pain, Edema, Palpitations, Shortness of Breath Respiratory: reports: No Symptoms Gastrointestinal: reports: Abdominal Pain Vital Signs: Vital Signs Temperature 98.5 F 06/03/20 07:15 Pulse Rate 85 06/03/20 13:25 Respiratory Rate 17 06/03/20 13:25 Blood Pressure 105/65 06/03/20 13:25 O2 Sat by Pulse Oximetry (%) 99 06/03/20 13:25 Constitutional: Yes: Well Nourished, No Distress Eyes: Yes: Conjunctiva Clear HENT: Yes: Atraumatic, Normocephalic Neck: Yes: Supple, Trachea Midline Respiratory: Yes: Regular, CTA Bilaterally Gastrointestinal: Yes: Normal Bowel Sounds Cardiovascular: Yes: Regular Rate and Rhythm JVD: No Carotid Bruit: No PMI: Non-Displaced Heart Sounds: Yes: S1, S2 Murmur: No: Systolic Murmur, Diastolic Murmur Edema: No Peripheral Pulses WNL: No - Other Data Labs, Other Data: CBC, BMP 06/03/20 05:25 06/03/20 06:04 Troponin, BNP 06/02/20 06/03/20 06/03/20 16:04 05: 06:04 Troponin I < 0.02 < 0.02 < 0.02 Troponin, BNP 06/02/20 06/03/20 06/03/20 16:04 05:25 06:04 Troponin I < 0.02 < 0.02 < 0.[address] T changes. Problem List - Problems (1) LUCILLE (acute kidney injury) Code(s): N17.9 - ACUTE KIDNEY FAILURE, UNSPECIFIED (2) Syncope Code(s): R55 - SYNCOPE AND COLLAPSE Qualifiers: Encounter type: initial encounter Assessment/Plan 74 yo F with cancer with several days of poor po intake weakness and loss of conciousness after taking narcotic analgesics for back pain. Noted to have LUCILLE and dehydration with hydronephrosis and possible urinary infection. ECG is normal without ischemia. She has no known prior CAD or arrhythmias and No heart failure Etiology of LOC is likely due to dehydration, ifection and effects of narcotic analgesia. No signs of ischemia. Renal function improving with hydration continue hydration and abx. Evaluate etiology of hydronephrosis which may be cause for her abdominal discomfort. Will see as needed.
--- NOTE | 2020-06-03 14:58 | EKG ---
Test Reason : Blood Pressure : / mmHG Vent. Rate : 079 BPM Atrial Rate : 079 BPM P-R Int : 162 ms QRS Dur : 078 ms QT Int : 380 ms P-R-T Axes : 013 -07 010 degrees QTc Int : 435 ms POOR DATA QUALITY, INTERPRETATION MAY BE ADVERSELY AFFECTED NORMAL SINUS RHYTHM POSSIBLE LEFT ATRIAL ENLARGEMENT BORDERLINE ECG WHEN COMPARED WITH ECG OF 19-JAN-2020 08:48, ABERRANT CONDUCTION IS NO LONGER PRESENT Confirmed by Itz Hawthorne ([id number]) on 06/03/2020 2:57:57 PM Referred By: Confirmed By:Itz Hawthorne
[2020-06-03] MEDS ORDERED: LIDOCAINE PATCH REMOVAL MC ONE (22:00)
[2020-06-03] MEDS ORDERED: LIDOCAINE PATCH REMOVAL MC SCH (22:00)
[2020-06-04] MEDS ORDERED: CEFTRIAXONE 1 GM in DEXTROSE 5%-WATER - 50 ML IVPB SCH (01:00)
[2020-06-04] MEDS ORDERED: cefTRIAXone SODIUM 1 GM VIAL ONE (01:19)
[2020-06-04] MEDS ORDERED: DEXTROSE 5%-WATER - 50 ML IVPB ONE ×3 (01:19→17:02)
[2020-06-04] MEDS: HEPARIN NA (PORCINE) 5,000 UNITS/ML 1ML VIAL SQ SCH ×3 (06:42→23:00)
[2020-06-04 06:50] LABS: BASO % 0.2 % (0-2.0); EOS % 0.2 % (0-4.5); HEMATOCRIT 32.1 % (32.4-45.2); HEMOGLOBIN 10.4 GM/dL (10.7-15.3); LYMPH % 3.4 % (8-40); MCH 28.7 pg (25.7-33.7); MCHC 32.5 g/dl (32.0-36.0); MEAN CELL VOLUME 88.1 fl (80-96); MONO % 7.5 % (3.8-10.2); NEUT % 88.7 % (42.8-82.8); PLATELET COUNT 199 K/MM3 (134-434); RBC 3.65 M/mm3 (3.60-5.2); RDW 15.6 % (11.6-15.6); WHITE BLOOD COUNT 12.2 K/mm3 (4.0-10.0)
[2020-06-04 07:13] LABS: BILIRUBIN,TOTAL 0.5 mg/dL (0.2-1); BLOOD UREA NITROGEN 25.1 mg/dL (7-18); CALCIUM 7.5 mg/dL (8.5-10.1); CREATININE 1.7 mg/dL (0.55-1.3); MAGNESIUM 1.6 mg/dL (1.8-2.4); PHOSPHOROUS 2.8 mg/dL (2.5-4.9); POTASSIUM 3.7 mmol/L (3.5-5.1); TOT PROT 4.9 g/dl (6.4-8.2)
[2020-06-04] MEDS: TAMSULOSIN HCL 0.4 MG CAP PO SCH (09:03)
[2020-06-04] MEDS ORDERED: PIPERACILLIN/TAZOBACTAM 2.25 GM VIAL IVPB ONE ×2 (09:14→17:02)
[2020-06-04] MEDS: PIPERACILLIN/TAZOB 2.25 GM 2.25 GM in DEXTROSE 5%-WATER - 50 ML IVPB SCH ×2 (09:45→17:13)
--- NOTE | 2020-06-04 12:45 | EKG ---
Test Reason : Blood Pressure : / mmHG Vent. Rate : 118 BPM Atrial Rate : 118 BPM P-R Int : 156 ms QRS Dur : 074 ms QT Int : 314 ms P-R-T Axes : 029 -23 012 degrees QTc Int : 440 ms POOR DATA QUALITY, INTERPRETATION MAY BE ADVERSELY AFFECTED SINUS TACHYCARDIA CANNOT RULE OUT ANTERIOR INFARCT , AGE UNDETERMINED ABNORMAL ECG WHEN COMPARED WITH ECG OF 02-JUN-2020 21:27, VENT. RATE HAS INCREASED BY 39 BPM MINIMAL CRITERIA FOR ANTERIOR INFARCT ARE NOW PRESENT Confirmed by Itz Hawthorne ([id number]) on 06/04/2020 12:45:19 PM Referred By: Confirmed By:Itz Hawthorne
--- NOTE | 2020-06-04 13:19 | PN ---
Progress Note, Physician History of Present Illness: Seen and examined at the bedside awake and alert offers no acute complaints making urine via yang no sob, cp, fever, chills - Current Medication List Current Medications: Active Medications Heparin Sodium (Porcine) (Heparin -) 5,000 unit SQ TID [facility] Last Admin: 06/04/20 06:42 Dose: 5,000 unit Documented by: Piperacillin Sod/Tazobactam (Sod 2.25 gm/ Dextrose) 50 mls @ 100 mls/hr IVPB Q8H-IV ISAIAH; Protocol Last Admin: 06/04/20 09:45 Dose: 100 mls/hr Documented by: Tamsulosin HCl (Flomax -) 0.4 mg PO DAILY@0830 [facility] Last Admin: 06/04/20 09:03 Dose: 0.4 mg Documented by: - Objective Vital Signs: Vital Signs Temperature 99.1 F 06/04/20 10:00 Pulse Rate 98 H 06/04/20 10:00 Respiratory Rate 20 06/04/20 10:00 Blood Pressure 121/69 06/04/20 10:00 O2 Sat by Pulse Oximetry (%) 90 L 06/04/20 09:00 Constitutional: Yes: No Distress, Calm HENT: Yes: Atraumatic Neck: Yes: Supple Cardiovascular: Yes: Regular Rate and Rhythm Respiratory: Yes: Regular, CTA Bilaterally Extremities: No: Cyanosis Neurological: Yes: Alert Labs: CBC, BMP 06/04/20 05:20 06/04/20 05:20 Assessment/Plan 74 year old woman with history of hypertension, hyperlipidemia, dementia, lymphoma, cervicial cancer, hx of COVID 19 who presented with syncope and found to have LUCILLE. 1. Acute kidney injury from volume depletion vs. obstruction 2. Syncope 3. Hypertension 4. Hyperlipidemia 5. Leukocytosis Renal function improved s/p yang placement Change IVF to hypotonic saline Urology consult to access cause of urinary retention CT of the Abd to r/o residual hydronephrosis or cause of hydronephrosis Follow up cultures Thank you Aleks Rodríguez DO
[2020-06-04] MEDS: SODIUM CHLORIDE 0.45% 1,000 ML IV SCH (13:51)
--- NOTE | 2020-06-04 14:46 | PN ---
Physical Exam: SUBJECTIVE: Patient seen and examined at bedside, admitted for sepsis 2/2 UTI and syncopal episode 2/2 volume depletion. Patient feeling better, Blood cx prelim +, will cont. IV abx and follow cultures. VSS. OBJECTIVE: Vital Signs Period Temp Pulse Resp BP Sys/Lewis Pulse Ox Last 24 Hr 98.5 F-100.2 F 96-114 20-20 110-146/60-69 90-98 GA elderly female, AAox2, intermittingly crying HEENT nC/AT, EOMI, neck supple, dry MM Chest CTAB, no increased WOB, no crackles CVS s1, S2+, RRR Abd Soft, ND, mild TTP suprapubic region, BS+ Ext no LE edema, no calf tenderness Laboratory Results - last 24 hr 06/03/20 06/04/20 06/04/20 06:15 05:20 05:20 WBC 12.2 H RBC 3.65 Hgb 10.4 L Hct 32.1 L MCV 88.1 MCH 28.7 MCHC 32.5 RDW 15.6 Plt Count 199 MPV 10.0 Absolute Neuts (auto) 10.8 H Neutrophils % 88.7 H Lymphocytes % 3.4 L D Monocytes % 7.5 Eosinophils % 0.2 D Basophils % 0.2 Nucleated RBC % 0 Sodium 147 H Potassium 3.7 Chloride 118 H Carbon Dioxide 20 L Anion Gap 9 BUN 25.1 H Creatinine 1.7 H Est GFR (CKD-EPI)AfAm 34.32 Est GFR (CKD-EPI)NonAf 29.61 Random Glucose 72 L Calcium 7.5 L Phosphorus 2.8 Magnesium 1.6 L Total Bilirubin 0.5 AST 16 ALT 18 Alkaline Phosphatase 112 Total Protein 4.9 L Albumin 2.0 L COVID-19 (DIEGO) Not detected Active Medications Generic Name Dose Route Start Last Admin Trade Name Freq PRN Reason Stop Dose Admin Heparin Sodium (Porcine) 5,000 unit 06/03/20 03:30 06/04/20 13:51 Heparin - SQ 5,000 unit TID ISAIAH Administration Piperacillin Sod/Tazobactam 50 mls @ 100 mls/hr 06/04/20 10:00 06/04/20 09:45 Sod 2.25 gm/ Dextrose IVPB 100 mls/hr Q8H-IV ISAIAH Administration Protocol Sodium Chloride 1,000 mls @ 75 mls/hr 06/04/20 13:30 06/04/20 13:51 1/2 Normal Saline IV 75 mls/hr ASDIR ISAIAH Administration Tamsulosin HCl 0.4 mg 06/03/20 08:30 06/04/20 09:03 Flomax - PO 0.4 mg DAILY@0830 ISAIAH Administration ASSESSMENT/PLAN: 74 F Sepsis 2/2 UTI HTN HLD Dementia h/o Cervical ca Neurogenic bladder Hydronephrosis Plan: Flomax/Gaitan placement for suspected obstruction IV zosyn for bacteremia Follow urine/blood cx Monitor blood pressures cont. 1/2 NS due to hypernatremia/volume depletion DVT ppx: Heparin SC Visit type - Emergency Visit Emergency Visit: Yes ED Registration Date: 06/03/20 Care time: The patient presented to the Emergency Department on the above date and was hospitalized for further evaluation of their emergent condition. - New Patient This patient is new to me today: No - Critical Care Critical Care patient: No - Discharge Referral Referred to [facility] Med P.C[facility] No - Medication Review Med list reviewed for High Risk Meds patients 65 and older: Yes
[2020-06-04] MEDS ORDERED: ACETAMINOPHEN 325 MG TABLET (FP) PO ONE (22:59)
[2020-06-05] MEDS ORDERED: DEXTROSE 5%-WATER - 50 ML IVPB ONE ×3 (01:05→18:28)
[2020-06-05] MEDS ORDERED: PIPERACILLIN/TAZOBACTAM 2.25 GM VIAL IVPB ONE ×3 (01:05→18:28)
[2020-06-05] MEDS: PIPERACILLIN/TAZOB 2.25 GM 2.25 GM in DEXTROSE 5%-WATER - 50 ML IVPB SCH ×3 (01:33→19:00)
[2020-06-05] MEDS: HEPARIN NA (PORCINE) 5,000 UNITS/ML 1ML VIAL SQ SCH ×4 (06:34→21:17)
[2020-06-05] MEDS: TAMSULOSIN HCL 0.4 MG CAP PO SCH (10:07)
--- NOTE | 2020-06-05 10:54 | CON.ID ---
Consult Consult Specialty:: infectious diseases Referred by:: Reason for Consultation:: bacteremia,uti - History of Present Illness Chief Complaint: weakness,lethargy,bacteremia History of Present Illness: 74 year old female with PMHx of HTN, HLD, dementia, cervical cancer, lymphoma and dementia presenting after a witnessed syncopal episode, with LOC with no trauma to head or neck. Pt was seen prior to this at [facility] for headache and was treated with fluids, tylenol and given oxycodone. Upon returning to home, pt was walking with son when she felt dizzy and light headed and had syncopal episode while walking to bathroom. Pt also complaining of abdominal pain which increses after eating, nausea and SOB. Pt denies any fever, chills, vomiting, diarrhea, constipation, CP. 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 05/19/15 oxyCODONE HCL [Roxicodone -] 10 mg PO Q6H PRN #60 tablet 05/19/15 Atorvastatin Ca [Lipitor] 40 mg PO HS 05/17/17 Ezetimibe [Zetia -] 10 mg PO DAILY 05/17/17 Ascorbic Acid [Vitamin C -] 500 mg PO BID #28 tablet 01/22/20 Cholecalciferol (Vitamin D3) [Vitamin D3 -] 1,000 unit PO DAILY #28 tab 01/22/20 Zinc Sulfate [Orazinc -] 220 mg PO BID #28 capsule 01/22/20 Apixaban [Eliquis -] 2.5 mg PO BID #28 tablet 01/24/20 Tamsulosin HCl [Flomax -] 0.4 mg PO BID #60 cap.er.24h 01/24/20 Family Medical History Family History: Unremarkable Review of Systems - Review of Systems Constitutional: reports: No Symptoms Eyes: reports: No Symptoms HENT: reports: No Symptoms Neck: reports: No Symptoms Cardiovascular: reports: No Symptoms Respiratory: reports: No Symptoms Gastrointestinal: reports: No Symptoms Genitourinary: reports: No Symptoms Integumentary: reports: No Symptoms Neurological: reports: No Symptoms Endocrine: reports: No Symptoms Hematology/Lymphatic: reports: No Symptoms Psychiatric: reports: No Symptoms Physical Exam Vital Signs: Vital Signs Temperature 98.2 F 06/05/20 06:00 Pulse Rate 65 06/05/20 06:00 Respiratory Rate 18 06/05/20 06:00 Blood Pressure 124/61 06/05/20 06:00 O2 Sat by Pulse Oximetry (%) 95 06/04/20 21:00 Constitutional: Yes: No Distress, Calm Eyes: Yes: Conjunctiva Clear Neck: Yes: Supple, Trachea Midline Cardiovascular: Yes: Regular Rate and Rhythm Respiratory: Yes: Regular, CTA Bilaterally Gastrointestinal: Yes: Normal Bowel Sounds, Soft Musculoskeletal: Yes: WNL Extremities: Yes: WNL Neurological: Yes: Alert, Other Psychiatric: Yes: Other Labs: CBC, BMP 06/04/20 05:20 06/04/20 05:20 Imaging - Results Chest X-ray: Report Reviewed, Image Reviewed Cat Scan: Report Reviewed, Image Reviewed Assessment/Plan 74 F Sepsis 2/2 UTI HTN HLD Dementia h/o Cervical ca Neurogenic bladder Hydronephrosis gm negative bacteremia plan will await for identifiation of the bacteria rest as per the team
--- NOTE | 2020-06-05 11:58 | PN ---
Progress Note, Physician History of Present Illness: Pt seen and examined at bedside. She is awake and appears comfortable. - Current Medication List Current Medications: Active Medications Heparin Sodium (Porcine) (Heparin -) 5,000 unit SQ TID ISAIAH Last Admin: 06/05/20 06:34 Dose: 5,000 unit Documented by: Piperacillin Sod/Tazobactam (Sod 2.25 gm/ Dextrose) 50 mls @ 100 mls/hr IVPB Q8H-IV ISAIAH; Protocol Last Admin: 06/05/20 10:07 Dose: 100 mls/hr Documented by: Sodium Chloride (1/2 Normal Saline) 1,000 mls @ 75 mls/hr IV ASDIR ISAIAH Last Admin: 06/04/20 13:51 Dose: 75 mls/hr Documented by: Tamsulosin HCl (Flomax -) 0.4 mg PO DAILY@0830 ISAIAH Last Admin: 06/05/20 10:07 Dose: 0.4 mg Documented by: - Objective Vital Signs: Vital Signs Temperature 98.2 F 06/05/20 06:00 Pulse Rate 65 06/05/20 06:00 Respiratory Rate 18 06/05/20 06:00 Blood Pressure 124/61 06/05/20 06:00 O2 Sat by Pulse Oximetry (%) 95 06/04/20 21:00 Constitutional: Yes: Calm Eyes: Yes: Conjunctiva Clear HENT: Yes: Atraumatic Cardiovascular: Yes: S1, S2 Respiratory: Yes: CTA Bilaterally Gastrointestinal: Yes: Soft Genitourinary: Yes: Yang Present Edema: No Integumentary: Yes: WNL Neurological: Yes: Oriented Labs: CBC, BMP 06/04/20 05:20 06/04/20 05:20 Assessment/Plan Current Medications Generic Name Dose Route Start Last Admin Trade Name Freq PRN Reason Stop Dose Admin Heparin Sodium (Porcine) 5,000 unit 06/03/20 03:30 06/05/20 06:34 Heparin - SQ 5,000 unit TID ISAIAH Administration Piperacillin Sod/Tazobactam 50 mls @ 100 mls/hr 06/04/20 10:00 06/05/20 10:07 Sod 2.25 gm/ Dextrose IVPB 100 mls/hr Q8H-IV ISAIAH Administration Protocol Sodium Chloride 1,000 mls @ 75 mls/hr 06/04/20 13:30 06/04/20 13:51 1/2 Normal Saline IV 75 mls/hr ASDIR ISAIAH Administration Tamsulosin HCl 0.4 mg 06/03/20 08:30 06/05/20 10:07 Flomax - PO 0.4 mg DAILY@0830 ISAIAH Administration Impression 1. LUCILLE 2. hyperkalemia 3. dementia 4. htn 5. hld 6. hypernatremia 7. acidosis 8. urinary retention Plan - cont hypotonic fluids - repeat labs in am - monitor renal function - urology eval - maintain yang - follow ct abd results
[2020-06-05 12:54] LABS: BLOOD UREA NITROGEN 18.2 mg/dL (7-18); CREATININE 1.4 mg/dL (0.55-1.3); MAGNESIUM 1.7 mg/dL (1.8-2.4); POTASSIUM 3.1 mmol/L (3.5-5.1)
--- NOTE | 2020-06-05 13:07 | PN ---
Teaching Attending Note Name of Resident: Warner Vazquez ATTENDING PHYSICIAN STATEMENT I saw and evaluated the patient. I reviewed the resident's note and discussed the case with the resident. I agree with the resident's findings and plan as documented. SUBJECTIVE: Seen and examined at bedside. Patient reports she is feeling much better. Blo od and urine cultures both positive for lactose fermenting gram-negative bacilli. Will repeat cultures and continue Zosyn OBJECTIVE Last Vital Signs Temp Pulse Resp BP Pulse Ox 98.0 F 72 18 120/66 97 06/05/20 09:00 06/05/20 09:00 06/05/20 09:00 06/05/20 09:00 06/05/20 09:00 PE: Per resident note Labs/Imaging: reviewed ASSESSMENT/PLAN 74-year-old female with a history of hypertension, hyperlipidemia, dementia, lymphoma, cervical cancer presents with syncopal episode and found to have UTI and bacteremia as well as bilateral hydronephrosis. #Gram-negative tee bacteremia likely secondary to urinary source Renal ultrasound shows bilateral hydronephrosis Follow-up CT abdomen pelvis Follow-up cultures Continue Zosyn ID and renal on board: Appreciate recommendations #Hypernatremia Continue D5 half NS #LUCILLE: Improving Continue fluids #Hypokalemia/hypomagnesemia Replete
[2020-06-05] MEDS: ACETAMINOPHEN 325 MG TABLET (FP) PO PRN ×2 (13:58→20:41)
[2020-06-05] MEDS: SODIUM CHLORIDE 0.45% 1,000 ML IV SCH (13:58)
[2020-06-05] MEDS ORDERED: POTASSIUM CHLORIDE TABS 20 MEQ TABLET.ER (FP) PO ONE (16:15)
[2020-06-05] MEDS ORDERED: MAGNESIUM 1GM/D5W 100ML - 100 ML IVPB IVPB ONE (16:16)
[2020-06-05] MEDS ORDERED: MORPHINE SULFATE 2 MG/ML VIAL IVPUSH ONE ×2 (16:17→22:07)
--- NOTE | 2020-06-05 17:42 | PN ---
Physical Exam: SUBJECTIVE: Patient seen and examined. Pt. anxious and tearful. Pt. endorses headache. OBJECTIVE: Vital Signs Period Temp Pulse Resp BP Sys/Lewis Pulse Ox Last 24 Hr 98.0 F-98.7 F 65-75 18-20 114-137/52-71 95-97 GENERAL: The patient is awake, alert, and fully oriented, in no acute distress. HEAD: Normal with no signs of trauma. EYES: Sclera anicteric, conjunctiva clear. ENT: Dry mucous membranes. NECK: Trachea midline, full range of motion, supple. LUNGS: Breath sounds equal, clear to auscultation bilaterally, no wheezes, no crackles, no accessory muscle use. HEART: Regular rate and rhythm, S1, S2 with opening snap? ABDOMEN: Soft, nontender, nondistended, normoactive bowel sounds, no guarding, no rebound, EXTREMITIES: 2+ dorsal pedal pulses, warm, well-perfused, no calf tenderness, no edema. NEUROLOGICAL:Normal speech, gait not observed. PSYCH: Normal mood, normal affect. SKIN: Warm, dry, normal turgor Laboratory Results - last 24 hr 06/05/20 12:10 Sodium 142 Potassium 3.1 L Chloride 114 H Carbon Dioxide 18 L Anion Gap 10 BUN 18.2 H Creatinine 1.4 H Est GFR (CKD-EPI)AfAm 43.40 Est GFR (CKD-EPI)NonAf 37.44 Random Glucose 104 Calcium 8.0 L Phosphorus 2.0 L Magnesium 1.7 L Active Medications Generic Name Dose Route Start Last Admin Trade Name Freq PRN Reason Stop Dose Admin Acetaminophen 650 mg 06/05/20 13:35 06/05/20 13:58 Tylenol - PO 650 mg Q6H PRN Administration Fever Or Pain Heparin Sodium (Porcine) 5,000 unit 06/03/20 03:30 06/05/20 13:58 Heparin - SQ 5,000 unit TID ISAIAH Administration Piperacillin Sod/Tazobactam 50 mls @ 100 mls/hr 06/04/20 10:00 06/05/20 10:07 Sod 2.25 gm/ Dextrose IVPB 100 mls/hr Q8H-IV ISAIAH Administration Protocol Sodium Chloride 1,000 mls @ 75 mls/hr 06/04/20 13:30 06/05/20 13:58 1/2 Normal Saline IV Not Given ASDIR ISAAIH Tamsulosin HCl 0.4 mg 06/03/20 08:30 06/05/20 10:07 Flomax - PO 0.4 mg DAILY@0830 [facility] Administration ASSESSMENT/PLAN: Pt. is a 74-y.o. F w/ PMHx. of HTN, HLD, dementia, Hx. of lymphoma, and Cervical CA presents with an episode of LOC and found to have UTI, bacteremia as well as bilateral hydronephrosis. #Syncope -stable Telemetry uneventful Carotid Duplex unremarkable Cardiology consult appreciated--> likely 2/2 dehydration and UTI Head and CSPine CT negative #Sepsis 2/2 Urinary Tract infection -BCx. and UCx. showing Gram-negative rods -Renal ultrasound shows bilateral hydronephrosis CT abdomen pelvis: bilateral renal pelvis fullsness but no tamy hydronephrosis, urinary bladder thickening, small b/l pleural effusion and large hiatal hernia -F/u Rpt. cultures Continue Zosyn ID and Nephrologyal consults appreciated #LUCILLE: Improving #Hypernatremia- resolved c/w IVF #HTN #HLD hold home medications, resume once BP tolerates and once medications reconciled #FEN 1/2 NS @ 75 monitor electrolytes and replete as needed Sodium controlled diet #DVT Ppx. Hep SQ TID Visit type - Emergency Visit Emergency Visit: Yes ED Registration Date: 06/03/20 Care time: The patient presented to the Emergency Department on the above date and was hospitalized for further evaluation of their emergent condition. - New Patient This patient is new to me today: Yes Date on this admission: 06/05/20 - Critical Care Critical Care patient: No - Discharge Referral Referred to [facility] No - Medication Review Med list reviewed for High Risk Meds patients 65 and older: Yes ATTENDING PHYSICIAN STATEMENT I saw and evaluated the patient. I reviewed the resident's note and discussed the case with the resident. I agree with the resident's findings and plan as documented. SUBJECTIVE: OBJECTIVE: ASSESSMENT AND PLAN:
[2020-06-06] MEDS ORDERED: PIPERACILLIN/TAZOBACTAM 2.25 GM VIAL IVPB ONE ×2 (03:37→09:51)
[2020-06-06] MEDS: PIPERACILLIN/TAZOB 2.25 GM 2.25 GM in DEXTROSE 5%-WATER - 50 ML IVPB SCH ×2 (04:01→10:30)
[2020-06-06] MEDS: HEPARIN NA (PORCINE) 5,000 UNITS/ML 1ML VIAL SQ SCH ×3 (06:19→22:10)
[2020-06-06 08:13] LABS: BASO % 0.3 % (0-2.0); EOS % 2.8 % (0-4.5); HEMATOCRIT 34.2 % (32.4-45.2); HEMOGLOBIN 11.4 GM/dL (10.7-15.3); MCH 28.9 pg (25.7-33.7); MCHC 33.3 g/dl (32.0-36.0); MEAN CELL VOLUME 86.7 fl (80-96); MEAN PLT VOLUME 9.7 fl (7.5-11.1); MONO % 7.6 % (3.8-10.2); NEUT % 84.3 % (42.8-82.8); PLATELET COUNT 235 K/MM3 (134-434); RBC 3.95 M/mm3 (3.60-5.2); RDW 15.8 % (11.6-15.6); WHITE BLOOD COUNT 9.4 K/mm3 (4.0-10.0)
[2020-06-06 08:43] LABS: BLOOD UREA NITROGEN 14.7 mg/dL (7-18); CALCIUM 8.2 mg/dL (8.5-10.1); CREATININE 1.4 mg/dL (0.55-1.3); MAGNESIUM 2.2 mg/dL (1.8-2.4); POTASSIUM 3.7 mmol/L (3.5-5.1)
[2020-06-06] MEDS ORDERED: DEXTROSE 5%-WATER - 50 ML IVPB ONE (09:51)
[2020-06-06] MEDS: TAMSULOSIN HCL 0.4 MG CAP PO SCH (10:30)
--- NOTE | 2020-06-06 12:50 | CONS ---
DATE OF CONSULTATION: DATE OF DICTATION: 06/06/2020 The patient is a 74-year-old female admitted via the emergency room on June 03, 2020, after sustaining a syncopal attack with loss of consciousness for 20 to 30 seconds, witnessed by her son. The patient does have history of high blood pressure, dementia, dyslipidemia. She was diagnosed with cervical cancer in 2005, and lymphoma in 2007 and again in 2008. She came to the emergency room because of lightheadedness and this witnessed syncopal attack. She notes taking an oxycodone for the first time for a headache and got lightheaded and nauseous afterwards. The patient denies any trauma, cough, shortness of breath, fever, chills, any GI or symptoms. She denies any allergies. Presently she appears to be alert, oriented, nontoxic, and in no apparent distress. Her abdomen is soft. There is no CVA tenderness. A Gaitan catheter was placed. Urine is clear. Extremities revealed no cyanosis, clubbing, or edema. The patient's EKG revealed normal sinus rhythm, unchanged from her previous EKG. Her urine revealed red blood cells as well as white blood cells. A urine culture grew out E coli, ESBL queen producer. Her latest white count is 9000; on admission it was 13,000. Presently her hemoglobin is 11.4 and hematocrit 34.2. Her BUN is 14 and creatinine 1.4. The patient had a CAT scan of her abdomen and pelvis without contrast. This revealed bilateral small pleural effusions, a large hiatal hernia, bilateral hydroureteronephrosis, and moderate bladder wall thickness with a Gaitan catheter present. A renal ultrasound revealed moderate to marked bilateral hydronephrosis, slightly worse on the left than the right with no gross stones seen. Presently her T-max is 98.2, blood pressure 135/78, pulse 99, respirations 20. Today the patient appears to be slightly anxious. She claims she has a headache. Her latest blood pressure is 137/52. Her BUN is 18.2 and creatinine 1.4. She continues to have bilateral hydronephrosis. Impression at present with history of cervical cancer with possibility of bilateral hydronephrosis must be considered secondary to local invasion and/or secondary to radiation side effects. The patient should undergo a diuretic renal scan to rule out functional obstruction, and a cystoscopy to rule out any bladder pathology in view of a thick-walled bladder. This can be done prior to discharge. DANUTA HAGAN M.D. [id number]
[2020-06-06] MEDS: ERTAPENEM SODIUM 0.5 GM in SODIUM CHLORIDE 50 ML IVPB SCH (13:00)
[2020-06-06] MEDS: SODIUM CHLORIDE 0.45% 1,000 ML IV SCH (13:00)
--- NOTE | 2020-06-06 13:05 | PN ---
Progress Note, Physician History of Present Illness: stable cx results noted has been switched to ertapenam - Current Medication List Current Medications: Active Medications Acetaminophen (Tylenol -) 650 mg PO Q6H PRN PRN Reason: Fever Or Pain Last Admin: 06/05/20 20:41 Dose: 650 mg Documented by: Heparin Sodium (Porcine) (Heparin -) 5,000 unit SQ TID [facility] Last Admin: 06/06/20 13:01 Dose: 5,000 unit Documented by: Sodium Chloride (1/2 Normal Saline) 1,000 mls @ 75 mls/hr IV ASDIR [facility] Last Admin: 06/06/20 13:00 Dose: 75 mls/hr Documented by: Ertapenem 0.5 gm/ Sodium (Chloride) 50 mls @ 100 mls/hr IVPB DAILY [facility] Last Admin: 06/06/20 13:00 Dose: 100 mls/hr Documented by: Tamsulosin HCl (Flomax -) 0.4 mg PO DAILY@0830 [facility] Last Admin: 06/06/20 10:30 Dose: 0.4 mg Documented by: - Objective Vital Signs: Vital Signs Temperature 98.2 F 06/06/20 09:00 Pulse Rate 86 06/06/20 09:00 Respiratory Rate 20 06/06/20 09:00 Blood Pressure 135/78 06/06/20 09:00 O2 Sat by Pulse Oximetry (%) 95 06/06/20 09:00 Constitutional: Yes: No Distress, Calm Cardiovascular: Yes: S1, S2 Respiratory: Yes: Regular, CTA Bilaterally Gastrointestinal: Yes: Normal Bowel Sounds, Soft Musculoskeletal: Yes: WNL Extremities: Yes: WNL Neurological: Yes: Alert, Oriented Psychiatric: Yes: Alert, Oriented Labs: CBC, BMP 06/06/20 06:25 06/06/20 06:25 Assessment/Plan 74 F Sepsis 2/2 UTI HTN HLD Dementia h/o Cervical ca Neurogenic bladder Hydronephrosis gm negative bacteremia plan continue ertapenam await for repeat blood cx once we have that then we can get a picc line rest as per the team
[2020-06-06] MEDS ORDERED: SODIUM CHLORIDE 0.45% 1,000 ML IV SCH (13:24)
--- NOTE | 2020-06-06 13:24 | PN ---
Progress Note, Physician History of Present Illness: Pt seen and examined at bedside. She is awake and alert. She denies shortness of breath. - Current Medication List Current Medications: Active Medications Acetaminophen (Tylenol -) 650 mg PO Q6H PRN PRN Reason: Fever Or Pain Last Admin: 06/05/20 20:41 Dose: 650 mg Documented by: Heparin Sodium (Porcine) (Heparin -) 5,000 unit SQ TID [facility] Last Admin: 06/06/20 13:01 Dose: 5,000 unit Documented by: Sodium Chloride (1/2 Normal Saline) 1,000 mls @ 75 mls/hr IV ASDIR [facility] Last Admin: 06/06/20 13:00 Dose: 75 mls/hr Documented by: Ertapenem 0.5 gm/ Sodium (Chloride) 50 mls @ 100 mls/hr IVPB DAILY [facility] Last Admin: 06/06/20 13:00 Dose: 100 mls/hr Documented by: Tamsulosin HCl (Flomax -) 0.4 mg PO DAILY@0830 [facility] Last Admin: 06/06/20 10:30 Dose: 0.4 mg Documented by: - Objective Vital Signs: Vital Signs Temperature 98.2 F 06/06/20 09:00 Pulse Rate 86 06/06/20 09:00 Respiratory Rate 20 06/06/20 09:00 Blood Pressure 135/78 06/06/20 09:00 O2 Sat by Pulse Oximetry (%) 95 06/06/20 09:00 Constitutional: Yes: Calm Eyes: Yes: Conjunctiva Clear HENT: Yes: Atraumatic Cardiovascular: Yes: S1, S2 Respiratory: Yes: CTA Bilaterally Gastrointestinal: Yes: Soft Genitourinary: Yes: Yang Present Musculoskeletal: Yes: WNL Edema: No Neurological: Yes: Oriented Psychiatric: Yes: Oriented Labs: CBC, BMP 06/06/20 06:25 06/06/20 06:25 Problem List - Problems (1) LUCILLE (acute kidney injury) Code(s): N17.9 - ACUTE KIDNEY FAILURE, UNSPECIFIED (2) Syncope Code(s): R55 - SYNCOPE AND COLLAPSE Qualifiers: Encounter type: initial encounter Assessment/Plan Current Medications Generic Name Dose Route Start Last Admin Trade Name Freq PRN Reason Stop Dose Admin Acetaminophen 650 mg 06/05/20 13:35 06/05/20 20:41 Tylenol - PO 650 mg Q6H PRN Administration Fever Or Pain Heparin Sodium (Porcine) 5,000 unit 06/03/20 03:30 06/06/20 13:01 Heparin - SQ 5,000 unit TID ISAIAH Administration Sodium Chloride 1,000 mls @ 75 mls/hr 06/04/20 13:30 06/06/20 13:00 1/2 Normal Saline IV 75 mls/hr ASDIR ISAIAH Administration Ertapenem 0.5 gm/ Sodium 50 mls @ 100 mls/hr 06/06/20 12:00 06/06/20 13:00 Chloride IVPB 100 mls/hr DAILY [facility]AIAH Administration Tamsulosin HCl 0.4 mg 06/03/20 08:30 06/06/20 10:30 Flomax - PO 0.4 mg DAILY@0830 [facility] Administration Impression 1. LUCILLE 2. hyperkalemia 3. dementia 4. htn 5. hld 6. hypernatremia 7. acidosis 8. urinary retention Plan - renal function stabilizing - monitor output - sodium improved - can start to decrease rate of fluids - repeat labs in am - urology eval - maintain yang
[2020-06-06] MEDS: ACETAMINOPHEN 325 MG TABLET (FP) PO PRN ×2 (13:28→22:11)
--- NOTE | 2020-06-06 13:30 | PN ---
Teaching Attending Note Name of Resident: Warner Vazquez ATTENDING PHYSICIAN STATEMENT I saw and evaluated the patient. I reviewed the resident's note and discussed the case with the resident. I agree with the resident's findings and plan as documented. SUBJECTIVE: Seen and examined at bedside. Patient with no physical complaints. Blood and urine cultures positive for ESBL producing E. coli. Patient switched to meropenem Pending ID consult OBJECTIVE Last Vital Signs Temp Pulse Resp BP Pulse Ox 98.2 F 86 20 135/78 95 06/06/20 09:00 06/06/20 09:00 06/06/20 09:00 06/06/20 09:00 06/06/20 09:00 PE: Per resident note Labs/Imaging: reviewed ASSESSMENT/PLAN 74-year-old female with a history of hypertension, hyperlipidemia, dementia, lymphoma, cervical cancer presents with syncopal episode and found to have UTI and bacteremia as well as bilateral hydronephrosis. #ESBL Ecoli bacteremia likely secondary to urinary source Renal ultrasound shows bilateral hydronephrosis Follow-up CT abdomen pelvis Follow-up cultures meropenem pending ID recs ID and renal on board: Appreciate recommendations #Hypernatremia Continue D5 half NS #LUCILLE: Improving Continue fluids #Hypokalemia/hypomagnesemia Replete
--- NOTE | 2020-06-06 15:44 | ECHO ---
Version: 1 Name: YASHA CASON Exam: Adult Echocardiogram Study Date: 06/06/2020, 2:37 PM Age: 74 Years MMode/2D Measurements & Calculations IVSd: 0.71 cm LVIDs: 2.37 cm LVIDd: 3.4 cm LVPWd: 1.07 cm LVOT diam: 1.88 cm Ao root diam: 2.8 cm LA dimension: 3.0 cm Doppler Measurements & Calculations MV E max storm: 50.8 cm/sec Med E/e': 9.7 MV A max storm: 88.4 cm/sec Med Peak E' Storm: 5.3 cm/sec MV E/A: 0.58 Lat E/e': 8.7 Lat Peak E' Storm: 5.8 cm/sec Ao max P.5 mmHg Ao V2 max: 116.0 cm/sec AI P1/2t: 528.7 msec Procedure A two-dimensional transthoracic echocardiogram with color flow and Doppler was performed. The patien t was in normal sinus rhythm during the exam. Left Ventricle The left ventricle is normal in size. Left ventricular systolic function is normal. Ejection Fractio n = 60%. E/A reversal consistent with but not diagnostic of poor LV compliance. Right Ventricle The right ventricle is normal size. The right ventricular systolic function is normal. Atria Normal left and right atrial size and function. Mitral Valve There is mild mitral annular calcification. There is trace mitral regurgitation. Tricuspid Valve The tricuspid valve is normal. No tricuspid regurgitation. Aortic Valve Fibrocalcific aortic valve without stenosis. Trace aortic regurgitation. Pulmonic Valve The pulmonic valve leaflets are thin and pliable; valve motion is normal. There is no pulmonic valvu lar regurgitation. Great Vessels The aortic root is normal size. Pericardium/Pleura There is no pericardial effusion. Summary Statements Ejection Fraction = 60. Left ventricular systolic function is normal. E/A reversal consistent with but not diagnostic of poor LV compliance The right ventricular systolic function is normal. There is mild mitral annular calcification. There is trace mitral regurgitation. Fibrocalcific aortic valve without stenosis. Trace aortic regurgitation. MD Ulices Ayers 06/06/2020, 3:44 PM Ordering Physician: Alec Su Referring Physician: LATASHA Performed By: Jennifer Perez
--- NOTE | 2020-06-06 18:42 | CONSULT ---
Consult Consult Specialty:: [facility] Referred by:: Dr. Camara Reason for Consultation:: h/o cervix cancer, r/o hydronephrosis - History of Present Illness Chief Complaint: syncopal episode History of Present Illness: 74 yo with h/o cervix cancer s/p chemoradiation in 2003. Reports she has had f/u with her cancer registrar oncologist, last time 2 years ago. Denies VB or abnormal discharge. Renal u/s 06/03/20 with bilateral hydronephrosis however CT abd/pelvis no hydro. Cr 1.4. Seen by Urology, Dr. Camara who requested this consult. - History Source History Provided By: Patient, Medical Record - Past Medical History CERTIFIED MEDICAL ASST: Yes: Dementia Cardio/Vascular: Yes: HTN, Hyperlipdemia ...: No - Alcohol/Substance Use Hx Alcohol Use: No - Smoking History Smoking history: Never smoked Have you smoked in the past 12 months: No Aproximately how many cigarettes per day: 0 Home Medications - Allergies Allergies/Adverse Reactions: Allergies Allergy/AdvReac Type Severity Reaction Status Date / Time No Known Drug Allergies Allergy Verified 05/17/17 20:53 - Home Medications Home Medications: Ambulatory Orders Acetaminophen [Tylenol .Extra-Strength -] 500 mg PO Q4H PRN 05/17/15 Pantoprazole Sodium [Protonix] 40 mg PO DAILY #60 tablet. 05/19/15 oxyCODONE HCL [Roxicodone -] 10 mg PO Q6H PRN #60 tablet 05/19/15 Atorvastatin Ca [Lipitor] 40 mg PO HS 05/17/17 Ezetimibe [Zetia -] 10 mg PO DAILY 05/17/17 Ascorbic Acid [Vitamin C -] 500 mg PO BID #28 tablet 01/22/20 Cholecalciferol (Vitamin D3) [Vitamin D3 -] 1,000 unit PO DAILY #28 tab 01/22/20 Zinc Sulfate [Orazinc -] 220 mg PO BID #28 capsule 01/22/20 Apixaban [Eliquis -] 2.5 mg PO BID #28 tablet 01/24/20 Tamsulosin HCl [Flomax -] 0.4 mg PO BID #60 cap.er.24h 01/24/20 Family Medical History Family History: Unremarkable Physical Exam Vital Signs: Vital Signs Temperature 97.8 F 09/08/20 14:10 Pulse Rate 87 06/06/20 14:10 Respiratory Rate 20 06/06/20 14:10 Blood Pressure 134/64 06/06/20 14:10 O2 Sat by Pulse Oximetry (%) 95 06/06/20 09:00 Labs: CBC, BMP 06/06/20 06:25 06/06/20 06:25 Imaging - Results Cat Scan: Report Reviewed, Image Reviewed Ultrasound: Report Reviewed, Image Reviewed Problem List - Problems (1) Cervical cancer Problems reviewed: Yes Code(s): C53.9 - MALIGNANT NEOPLASM OF CERVIX UTERI, UNSPECIFIED Assessment/Plan 74 yo with remote h/o cervix cancer s/p chemoradiation. Admitted with syncopal episode, bilateral hydro seen on renal u/s however CT no hydro. No pelvic masses, no LAD or any e/o metastatic disease. Urologic workup as per Dr. Camara. I discussed with patient that she can f/u with her cancer registrar oncologist at [place] for pelvic exam. She agrees with this plan. Currently on imaging, no e/o recurrence.
[2020-06-07] MEDS: HEPARIN NA (PORCINE) 5,000 UNITS/ML 1ML VIAL SQ SCH ×3 (06:50→21:16)
[2020-06-07] MEDS: ERTAPENEM SODIUM 0.5 GM in SODIUM CHLORIDE 50 ML IVPB SCH (09:44)
[2020-06-07] MEDS: TAMSULOSIN HCL 0.4 MG CAP PO SCH (09:44)
--- NOTE | 2020-06-07 12:36 | PN ---
Teaching Attending Note Name of Resident: Deandre Galeana ATTENDING PHYSICIAN STATEMENT I saw and evaluated the patient. I reviewed the resident's note and discussed the case with the resident. I agree with the resident's findings and plan as documented. SUBJECTIVE: Seen and examined at bedside. Patient reports feeling well. Currently on er tapenem for ESBL. Pending further urologic work-up OBJECTIVE Last Vital Signs Temp Pulse Resp BP Pulse Ox 98.1 F 88 20 117/72 96 06/07/20 06:00 06/07/20 06:00 06/07/20 06:00 06/07/20 06:00 06/07/20 06:00 PE: Per resident note Labs/Imaging: reviewed ASSESSMENT/PLAN 74-year-old female with a history of hypertension, hyperlipidemia, dementia, lymphoma, cervical cancer presents with syncopal episode and found to have UTI and bacteremia as well as bilateral hydronephrosis. #ESBL Ecoli bacteremia likely secondary to urinary source ID on board: Appreciate recommendations On ertapenem, will require outpatient IV antibiotics #Bladder mural thickening and hydronephrosis -urology on board -s/p diuretic renal scan -pending cystoscopy (inpt vs outpt?) -seen by [facility] per urology request: pt may f/u as an outpatient #Hypernatremia:resolved -d/c d5 1/2 NS #LUCILLE: Improving Continue fluids #Hypokalemia/hypomagnesemia Replete
--- NOTE | 2020-06-07 13:11 | PN ---
Progress Note, Physician History of Present Illness: Pt seen and examined at bedside. She is awake and alert. She denies shortness of breath. - Current Medication List Current Medications: Active Medications Acetaminophen (Tylenol -) 650 mg PO Q6H PRN PRN Reason: Fever Or Pain Last Admin: 06/06/20 22:11 Dose: 650 mg Documented by: Heparin Sodium (Porcine) (Heparin -) 5,000 unit SQ TID [facility] Last Admin: 06/07/20 06:50 Dose: 5,000 unit Documented by: Ertapenem 0.5 gm/ Sodium (Chloride) 50 mls @ 100 mls/hr IVPB DAILY [facility] Last Admin: 06/07/20 09:44 Dose: 100 mls/hr Documented by: Tamsulosin HCl (Flomax -) 0.4 mg PO DAILY@0830 [facility] Last Admin: 06/07/20 09:44 Dose: 0.4 mg Documented by: - Objective Vital Signs: Vital Signs Temperature 98.3 F 06/07/20 10:00 Pulse Rate 86 06/07/20 10:00 Respiratory Rate 22 H 06/07/20 10:00 Blood Pressure 133/74 06/07/20 10:00 O2 Sat by Pulse Oximetry (%) 96 06/07/20 10:00 Constitutional: Yes: Calm Eyes: Yes: Conjunctiva Clear HENT: Yes: Atraumatic Neck: Yes: Supple Cardiovascular: Yes: S1, S2 Respiratory: Yes: CTA Bilaterally Gastrointestinal: Yes: Soft Genitourinary: Yes: WNL Musculoskeletal: Yes: WNL Edema: No Neurological: Yes: Oriented Psychiatric: Yes: Oriented Labs: CBC, BMP 06/06/20 06:25 06/06/20 06:25 Problem List - Problems (1) LUCILLE (acute kidney injury) Code(s): N17.9 - ACUTE KIDNEY FAILURE, UNSPECIFIED (2) Syncope Code(s): R55 - SYNCOPE AND COLLAPSE Qualifiers: Encounter type: initial encounter Assessment/Plan Current Medications Generic Name Dose Route Start Last Admin Trade Name Freq PRN Reason Stop Dose Admin Acetaminophen 650 mg 06/05/20 13:35 06/06/20 22:11 Tylenol - PO 650 mg Q6H PRN Administration Fever Or Pain Heparin Sodium (Porcine) 5,000 unit 06/03/20 03:30 06/07/20 06:50 Heparin - SQ 5,000 unit TID ISAIAH Administration Ertapenem 0.5 gm/ Sodium 50 mls @ 100 mls/hr 06/06/20 12:00 06/07/20 09:44 Chloride IVPB 100 mls/hr DAILY ISAIAH Administration Tamsulosin HCl 0.4 mg 06/03/20 08:30 06/07/20 09:44 Flomax - PO 0.4 mg DAILY@0830 ISAIAH Administration Impression 1. LUCILLE 2. hyperkalemia 3. dementia 4. htn 5. hld 6. hypernatremia 7. acidosis 8. urinary retention Plan - no new labs - cont to monitor renal function - will need outpt follow up - pt stable off of fluids - repeat labs in am - urology eval - maintain yang
--- NOTE | 2020-06-07 13:21 | PN ---
Progress Note, Physician History of Present Illness: stable no new issues - Current Medication List Current Medications: Active Medications Acetaminophen (Tylenol -) 650 mg PO Q6H PRN PRN Reason: Fever Or Pain Last Admin: 06/06/20 22:11 Dose: 650 mg Documented by: Heparin Sodium (Porcine) (Heparin -) 5,000 unit SQ TID [facility] Last Admin: 06/07/20 06:50 Dose: 5,000 unit Documented by: Ertapenem 0.5 gm/ Sodium (Chloride) 50 mls @ 100 mls/hr IVPB DAILY [facility] Last Admin: 06/07/20 09:44 Dose: 100 mls/hr Documented by: Tamsulosin HCl (Flomax -) 0.4 mg PO DAILY@0830 [facility] Last Admin: 06/07/20 09:44 Dose: 0.4 mg Documented by: - Objective Vital Signs: Vital Signs Temperature 98.3 F 06/07/20 10:00 Pulse Rate 86 06/07/20 10:00 Respiratory Rate 22 H 06/07/20 10:00 Blood Pressure 133/74 06/07/20 10:00 O2 Sat by Pulse Oximetry (%) 96 06/07/20 10:00 Constitutional: Yes: No Distress, Calm Cardiovascular: Yes: S1, S2 Respiratory: Yes: Regular, CTA Bilaterally Gastrointestinal: Yes: Normal Bowel Sounds, Soft Musculoskeletal: Yes: WNL Extremities: Yes: WNL Neurological: Yes: Alert, Oriented Psychiatric: Yes: Alert, Oriented Labs: CBC, BMP 06/06/20 06:25 06/06/20 06:25 Assessment/Plan 74 F Sepsis 2/2 UTI HTN HLD Dementia h/o Cervical ca Neurogenic bladder Hydronephrosis gm negative bacteremia plan continue ertapenam patient need 2 weeks of abx
--- NOTE | 2020-06-07 13:46 | PN ---
Physical Exam: SUBJECTIVE: Patient seen and examined at bedside. She denies acute complaints this morning. OBJECTIVE: Vital Signs Period Temp Pulse Resp BP Sys/Lewis Pulse Ox Last 24 Hr 97.8 F-98.5 F 76-100 19-22 108-134/60-90 93-98 GENERAL: The patient is awake, alert, and fully oriented, in no acute distress. HEAD: Normocephalic, atraumatic. EYES: PERRL, extraocular movements intact, sclera anicteric, conjunctiva clear. ENT: Oropharynx clear, without erythema or exudates. Moist mucous membranes. NECK: Trachea midline, full range of motion. Supple without lymphadenopathy. LUNGS: Breath sounds equal, clear to auscultation bilaterally. No wheezes, no crackles. No accessory muscle use. HEART: Regular rate and rhythm. S1, S2 without murmur, rub or gallop. ABDOMEN: Soft, nondistended, nontender to light and deep palpation x4 quadrants. No rebound tenderness, no guarding. Normoactive bowel sounds x4 quadrants. No hepatosplenomegaly, no masses appreciated. EXTREMITIES: 2+ radial, dorsalis pedis pulses bilaterally. Warm, well-perfused. No lower extremity edema bilaterally. NEUROLOGICAL: Cranial nerves II through XII grossly intact. Normal speech. No gross focal deficits. PSYCH: Normal mood, normal affect upon my encounter. SKIN: Warm, dry. Active Medications Generic Name Dose Route Start Last Admin Trade Name Freq PRN Reason Stop Dose Admin Acetaminophen 650 mg 06/05/20 13:35 06/06/20 22:11 Tylenol - PO 650 mg Q6H PRN Administration Fever Or Pain Heparin Sodium (Porcine) 5,000 unit 06/03/20 03:30 06/07/20 06:50 Heparin - SQ 5,000 unit TID ISAIAH Administration Ertapenem 0.5 gm/ Sodium 50 mls @ 100 mls/hr 06/06/20 12:00 06/07/20 09:44 Chloride IVPB 100 mls/hr DAILY ISAIAH Administration Tamsulosin HCl 0.4 mg 06/03/20 08:30 06/07/20 09:44 Flomax - PO 0.4 mg DAILY@0830 ISAIAH Administration ASSESSMENT/PLAN: Patient is a 74 year old female with history of cervical cancer, lymphoma, dementia, hypertension, hyperlipidemia, presents after episode of loss of consciousness. Admitted for sepsis secondary to urinary tract infection. Syncope -stable -Telemetry monitoring reveals sinus rhythm. -Carotid Duplex unremarkable for hemodynamically significant stenosis -Cardiology consult appreciated syncopal etiology likely 2/2 dehydration and urinary tract infection. -CT Head and cervical spine negative for acute fracture/ pathology. Sepsis secondary to urinary tract infection -Blood culture (06/03) grows ESBL producing E. coli/ lactose fermenting gram negative bacilli. -Following repeat blood culture (06/06) - Urine culture (06/03) grows ESBL producing E. coli -Renal ultrasound revels moderate- marked bilateral hydronephrosis. Negative renal calculi. -CT abdomen/ pelvis reveals bilateral renal pelvis fullness but without tamy hydronephrosis. Urinary bladder wall thickening. Small b/l pleural effusion noted. -Zosyn- switched to Ertapenem (06/06) -ID recommendations appreciated (Dr. Montoya). Patient will require two weeks of IV antibiotics. -Nephrology recommendations appreciated (Dr. Montoya) LUCILLE -Improving. Follow BMP Hypernatremia -Resolved FEN -No IV fluids indicated -Follow BMP -Sodium controlled diet Prophylaxis -Heparin 5000 units subq TID Disposition -Continue care in medical- surgical floor. Visit type - Emergency Visit Emergency Visit: Yes ED Registration Date: 06/03/20 Care time: The patient presented to the Emergency Department on the above date and was hospitalized for further evaluation of their emergent condition. - New Patient This patient is new to me today: Yes Date on this admission: 06/07/20 - Critical Care Critical Care patient: No - Discharge Referral Referred to [facility] No - Medication Review Med list reviewed for High Risk Meds patients 65 and older: Yes ATTENDING PHYSICIAN STATEMENT I saw and evaluated the patient. I reviewed the resident's note and discussed the case with the resident. I agree with the resident's findings and plan as documented. SUBJECTIVE: OBJECTIVE: ASSESSMENT AND PLAN:
[2020-06-07] MEDS ORDERED: MAG HYDROX/AL HYDROX/SIMETH -MYLANTA- ORAL SUSPENSION PO ONE ×2 (22:59→23:15)
[2020-06-07] MEDS ORDERED: MAG HYDROX/AL HYDROX/SIMETH 30 ML UNIT-DOSE CUP PO ONE (23:15)
[2020-06-08] MEDS ORDERED: ACETAMINOPHEN 325 MG TABLET (FP) PO ONE (03:15)
[2020-06-08] MEDS: HEPARIN NA (PORCINE) 5,000 UNITS/ML 1ML VIAL SQ SCH ×3 (06:28→21:29)
[2020-06-08 07:30] LABS: HEMOGLOBIN 10.2 GM/dL (10.7-15.3); MCH 28.6 pg (25.7-33.7); MEAN CELL VOLUME 86.8 fl (80-96); MEAN PLT VOLUME 8.6 fl (7.5-11.1); PLATELET COUNT 318 K/MM3 (134-434); RBC 3.57 M/mm3 (3.60-5.2); RDW 15.6 % (11.6-15.6); WHITE BLOOD COUNT 10.1 K/mm3 (4.0-10.0)
[2020-06-08 07:51] LABS: BILIRUBIN,TOTAL 0.7 mg/dL (0.2-1); BLOOD UREA NITROGEN 15.6 mg/dL (7-18); CALCIUM 8.3 mg/dL (8.5-10.1); POTASSIUM 3.3 mmol/L (3.5-5.1); TOT PROT 5.1 g/dl (6.4-8.2)
[2020-06-08] MEDS: TAMSULOSIN HCL 0.4 MG CAP PO SCH (09:33)
[2020-06-08] MEDS ORDERED: PT OWN MED DRAWER 7, Y5N ONE (09:34)
[2020-06-08] MEDS: ERTAPENEM SODIUM 0.5 GM in SODIUM CHLORIDE 50 ML IVPB SCH (09:36)
--- NOTE | 2020-06-08 09:37 | PN ---
Progress Note, Physician - Current Medication List Current Medications: Active Medications Acetaminophen (Tylenol -) 650 mg PO Q6H PRN PRN Reason: Fever Or Pain Last Admin: 06/06/20 22:11 Dose: 650 mg Documented by: Heparin Sodium (Porcine) (Heparin -) 5,000 unit SQ TID [facility] Last Admin: 06/08/20 06:28 Dose: 5,000 unit Documented by: Ertapenem 0.5 gm/ Sodium (Chloride) 50 mls @ 100 mls/hr IVPB DAILY [facility] Last Admin: 06/08/20 09:36 Dose: 100 mls/hr Documented by: Tamsulosin HCl (Flomax -) 0.4 mg PO DAILY@0830 [facility] Last Admin: 06/08/20 09:33 Dose: 0.4 mg Documented by: - Objective Vital Signs: Vital Signs Temperature 98.6 F 06/08/20 06:00 Pulse Rate 96 H 06/08/20 06:00 Respiratory Rate 20 06/08/20 06:00 Blood Pressure 136/73 06/08/20 06:00 O2 Sat by Pulse Oximetry (%) 94 L 06/08/20 06:00 Labs: CBC, BMP 06/08/20 05:50 06/08/20 06:00
--- NOTE | 2020-06-08 11:57 | PN ---
Progress Note, Physician History of Present Illness: Pt seen and examined at bedside. She is eager to go home. She denies shortness of breath. - Current Medication List Current Medications: Active Medications Acetaminophen (Tylenol -) 650 mg PO Q6H PRN PRN Reason: Fever Or Pain Last Admin: 06/06/20 22:11 Dose: 650 mg Documented by: Heparin Sodium (Porcine) (Heparin -) 5,000 unit SQ TID [facility] Last Admin: 06/08/20 06:28 Dose: 5,000 unit Documented by: Ertapenem 0.5 gm/ Sodium (Chloride) 50 mls @ 100 mls/hr IVPB DAILY [facility] Last Admin: 06/08/20 09:36 Dose: 100 mls/hr Documented by: Potassium Chloride (Potassium Chloride Oral Liquid) 40 meq PO ONCE ONE Stop: 06/08/20 11:47 Tamsulosin HCl (Flomax -) 0.4 mg PO DAILY@0830 [facility] Last Admin: 06/08/20 09:33 Dose: 0.4 mg Documented by: - Objective Vital Signs: Vital Signs Temperature 98 F 06/08/20 09:00 Pulse Rate 90 06/08/20 09:00 Respiratory Rate 18 06/08/20 09:00 Blood Pressure 123/80 06/08/20 09:00 O2 Sat by Pulse Oximetry (%) 94 L 06/08/20 09:00 Constitutional: Yes: Calm Eyes: Yes: Conjunctiva Clear HENT: Yes: Atraumatic Neck: Yes: Supple Cardiovascular: Yes: S1, S2 Respiratory: Yes: CTA Bilaterally Gastrointestinal: Yes: Normal Bowel Sounds, Soft Genitourinary: Yes: Gaitan Present Musculoskeletal: Yes: WNL Edema: No Neurological: Yes: Oriented Psychiatric: Yes: Oriented Labs: CBC, BMP 06/08/20 05:50 06/08/20 06:00 Problem List - Problems (1) LUCILLE (acute kidney injury) Code(s): N17.9 - ACUTE KIDNEY FAILURE, UNSPECIFIED (2) Syncope Code(s): R55 - SYNCOPE AND COLLAPSE Qualifiers: Encounter type: initial encounter Assessment/Plan Microbiology 06/06/20 11:55 Blood - Peripheral Venous Blood Culture - Preliminary NO GROWTH OBTAINED AFTER 24 HOURS, INCUBATION TO CONTINUE FOR 4 DAYS. 06/06/20 12:00 Blood - Peripheral Venous Blood Culture - Preliminary NO GROWTH OBTAINED AFTER 24 HOURS, INCUBATION TO CONTINUE FOR 4 DAYS. Current Medications Generic Name Dose Route Start Last Admin Trade Name Lee PRN Reason Stop Dose Admin Acetaminophen 650 mg 06/05/20 13:35 06/06/20 22:11 Tylenol - PO 650 mg Q6H PRN Administration Fever Or Pain Heparin Sodium (Porcine) 5,000 unit 06/03/20 03:30 06/08/20 06:28 Heparin - SQ 5,000 unit TID ISAIAH Administration Ertapenem 0.5 gm/ Sodium 50 mls @ 100 mls/hr 06/06/20 12:00 06/08/20 09:36 Chloride IVPB 100 mls/hr DAILY ISAIAH Administration Potassium Chloride 40 meq 06/08/20 11:46 Potassium Chloride Oral Liquid PO 06/08/20 11:47 ONCE ONE Tamsulosin HCl 0.4 mg 06/03/20 08:30 06/08/20 09:33 Flomax - PO 0.4 mg DAILY@0830 ISAIAH Administration Impression 1. LUCILLE 2. hyperkalemia 3. dementia 4. htn 5. hld 6. hypernatremia 7. acidosis 8. urinary retention Plan - renal function is improved - follow up urology - replace potassium - check mag - abx per ID - cont to monitor renal function - will need outpt follow up - pt stable off of fluids
[2020-06-08] MEDS ORDERED: POTASSIUM CHLORIDE ORAL LIQUID 20 MEQ/15 ML PO ONE (12:00)
--- NOTE | 2020-06-08 12:34 | PN ---
Teaching Attending Note Name of Resident: Deandre Galeana ATTENDING PHYSICIAN STATEMENT I saw and evaluated the patient. I reviewed the resident's note and discussed the case with the resident. I agree with the resident's findings and plan as documented. SUBJECTIVE: Seen and examined at bedside. Patient reports feeling well. Currently on er tapenem for ESBL. Diuretic scan pending read, pending decision on inpt vs outpatient cystoscopy OBJECTIVE Last Vital Signs Temp Pulse Resp BP Pulse Ox 98 F 90 18 123/80 94 L 06/08/20 09:00 06/08/20 09:00 06/08/20 09:00 06/08/20 09:00 06/08/20 09:00 PE: Per resident note Labs/Imaging: reviewed ASSESSMENT/PLAN 74-year-old female with a history of hypertension, hyperlipidemia, dementia, lymphoma, cervical cancer presents with syncopal episode and found to have UTI and bacteremia as well as bilateral hydronephrosis. #ESBL Ecoli bacteremia likely secondary to urinary source ID on board: Appreciate recommendations On ertapenem, will require outpatient IV antibiotics, pending decision on length of therapy #Bladder mural thickening and hydronephrosis -urology on board -s/p diuretic renal scan, f/u read -pending cystoscopy (inpt vs outpt?) -seen by gyn physician onc per urology request: pt may f/u as an outpatient #Hypernatremia:resolved -d/c d5 1/2 NS #LUCILLE: Improving Continue fluids #Hypokalemia/hypomagnesemia Replete Dispo: likely home with IV abx
--- NOTE | 2020-06-08 16:04 | PN ---
Physical Exam: SUBJECTIVE: Patient seen and examined at bedside. She denies any dysuria, hematuria. Denies subjective fevers, chills. OBJECTIVE: Vital Signs Period Temp Pulse Resp BP Sys/Lewis Pulse Ox Last 24 Hr 97.8 F-98.6 F 90-101 18-20 115-139/73-80 93-96 GENERAL: The patient is awake, alert, and fully oriented, in no acute distress. HEAD: Normocephalic, atraumatic. EYES: PERRL, extraocular movements intact, sclera anicteric, conjunctiva clear. ENT: Oropharynx clear, without erythema or exudates. Moist mucous membranes. NECK: Trachea midline, full range of motion. Supple without lymphadenopathy. LUNGS: Breath sounds equal, clear to auscultation bilaterally. No wheezes, no crackles. No accessory muscle use. HEART: Regular rate and rhythm. S1, S2 without murmur, rub or gallop. ABDOMEN: Soft, nondistended, nontender to light and deep palpation x4 quadrants. No rebound tenderness, no guarding. Normoactive bowel sounds x4 quadrants. No hepatosplenomegaly, no masses appreciated. EXTREMITIES: 2+ radial, dorsalis pedis pulses bilaterally. Warm, well-perfused. No lower extremity edema bilaterally. NEUROLOGICAL: Cranial nerves II through XII grossly intact. Normal speech. No gross focal deficits. PSYCH: Normal mood, normal affect upon my encounter. SKIN: Warm, dry. Laboratory Results - last 24 hr 06/08/20 06/08/20 05:50 06:00 WBC 10.1 H RBC 3.57 L Hgb 10.2 L Hct 31.0 L MCV 86.8 MCH 28.6 MCHC 33.0 RDW 15.6 Plt Count 318 D MPV 8.6 D Sodium 143 Potassium 3.3 L Chloride 110 H Carbon Dioxide 25 Anion Gap 7 L BUN 15.6 Creatinine 1.0 Est GFR (CKD-EPI)AfAm 65.18 Est GFR (CKD-EPI)NonAf 56.24 Random Glucose 99 Calcium 8.3 L Total Bilirubin 0.7 AST 45 H ALT 41 Alkaline Phosphatase 174 H Total Protein 5.1 L Albumin 2.0 L Active Medications Generic Name Dose Route Start Last Admin Trade Name Freq PRN Reason Stop Dose Admin Acetaminophen 650 mg 06/05/20 13:35 06/06/20 22:11 Tylenol - PO 650 mg Q6H PRN Administration Fever Or Pain Heparin Sodium (Porcine) 5,000 unit 06/03/20 03:30 06/08/20 13:59 Heparin - SQ 5,000 unit TID ISAIAH Administration Ertapenem 0.5 gm/ Sodium 50 mls @ 100 mls/hr 06/06/20 12:00 06/08/20 09:36 Chloride IVPB 100 mls/hr DAILY ISAIAH Administration Tamsulosin HCl 0.4 mg 06/03/20 08:30 06/08/20 09:33 Flomax - PO 0.4 mg DAILY@0830 ISAIAH Administration ASSESSMENT/PLAN: Patient is a 74 year old female with history of cervical cancer, lymphoma, dementia, hypertension, hyperlipidemia, presents after episode of loss of consciousness. Admitted for sepsis secondary to urinary tract infection. Syncope -stable -Telemetry monitoring reveals sinus rhythm. -Carotid Duplex unremarkable for hemodynamically significant stenosis -Cardiology consult appreciated syncopal etiology likely secondary to dehydration and urinary tract infection. -CT Head and cervical spine negative for acute fracture/ pathology. Sepsis secondary to urinary tract infection -Blood culture (06/03) grows ESBL producing E. coli/ lactose fermenting gram negative bacilli. -Following repeat blood culture (06/06) - Urine culture (06/03) grows ESBL producing E. coli -Renal ultrasound revels moderate- marked bilateral hydronephrosis. Negative renal calculi. -CT abdomen/ pelvis reveals bilateral renal pelvis fullness but without tamy hydronephrosis. Urinary bladder wall thickening. Small b/l pleural effusion noted. -Zosyn- switched to Ertapenem (06/06) -ID recommendations appreciated (Dr. Montoya). Patient will require two weeks of IV antibiotics. -Nephrology recommendations appreciated (Dr. Montoya) LUCILLE -Improving. Follow BMP Hypernatremia -Resolved FEN -No IV fluids indicated -Follow BMP -Sodium controlled diet Prophylaxis -Heparin 5000 units subq TID Disposition -Continue care in medical- surgical floor. Visit type - Emergency Visit Emergency Visit: Yes ED Registration Date: 06/03/20 Care time: The patient presented to the Emergency Department on the above date and was hospitalized for further evaluation of their emergent condition. - New Patient This patient is new to me today: No - Critical Care Critical Care patient: No - Discharge Referral Referred to [facility] No - Medication Review Med list reviewed for High Risk Meds patients 65 and older: Yes ATTENDING PHYSICIAN STATEMENT I saw and evaluated the patient. I reviewed the resident's note and discussed the case with the resident. I agree with the resident's findings and plan as documented. SUBJECTIVE: OBJECTIVE: ASSESSMENT AND PLAN:
[2020-06-08] MEDS: ACETAMINOPHEN 325 MG TABLET (FP) PO PRN (23:06)
[2020-06-09] MEDS: HEPARIN NA (PORCINE) 5,000 UNITS/ML 1ML VIAL SQ SCH ×2 (05:55→15:23)
[2020-06-09 08:01] LABS: HEMOGLOBIN 11.2 GM/dL (10.7-15.3); MCH 28.3 pg (25.7-33.7); MCHC 32.9 g/dl (32.0-36.0); MEAN CELL VOLUME 86.1 fl (80-96); MEAN PLT VOLUME 8.5 fl (7.5-11.1); PLATELET COUNT 432 K/MM3 (134-434); RBC 3.95 M/mm3 (3.60-5.2); WHITE BLOOD COUNT 7.8 K/mm3 (4.0-10.0)
[2020-06-09 08:11] LABS: ALBUMIN 2.3 g/dl (3.4-5.0); BILIRUBIN,TOTAL 0.3 mg/dL (0.2-1); BLOOD UREA NITROGEN 16.1 mg/dL (7-18); CALCIUM 9.1 mg/dL (8.5-10.1); CREATININE 1.2 mg/dL (0.55-1.3); MAGNESIUM 2.1 mg/dL (1.8-2.4); POTASSIUM 3.4 mmol/L (3.5-5.1); TOT PROT 5.8 g/dl (6.4-8.2)
[2020-06-09] MEDS ORDERED: POTASSIUM CHLORIDE ORAL LIQUID 20 MEQ/15 ML PO ONE (08:45)
[2020-06-09] MEDS ORDERED: PT OWN MED DRAWER 7, Y5N ONE (10:02)
[2020-06-09 10:12] LABS: INR 1.01 (0.83-1.09); PROTHROMBIN TIME (PATIENT) 11.9 SEC (9.7-13.0)
[2020-06-09] MEDS: ERTAPENEM SODIUM 0.5 GM in SODIUM CHLORIDE 50 ML IVPB SCH (10:49)
[2020-06-09] MEDS: TAMSULOSIN HCL 0.4 MG CAP PO SCH (10:49)
--- NOTE | 2020-06-09 11:56 | DS ---
Physical Exam: SUBJECTIVE: Patient seen and examined at bedside. OBJECTIVE: Vital Signs Period Temp Pulse Resp BP Sys/Lewis Pulse Ox Last 24 Hr 97.3 F-98.7 F 73-117 18-20 102-120/60-77 92-96 PHYSICAL EXAM GENERAL: The patient is awake, alert, and fully oriented, in no acute distress. HEAD: Normal with no signs of trauma. EYES: PERRL, extraocular movements intact, sclera anicteric, conjunctiva clear. ENT: Ears normal, nares patent, oropharynx clear without exudates, moist mucous membranes. NECK: Trachea midline, full range of motion, supple. LUNGS: Breath sounds equal, clear to auscultation bilaterally, no wheezes, no crackles, no accessory muscle use. HEART: Regular rate and rhythm, S1, S2 without murmur, rub or gallop. ABDOMEN: Soft, nontender, nondistended, normoactive bowel sounds, no guarding, no rebound, no hepatosplenomegaly, no masses. EXTREMITIES: 2+ pulses, warm, well-perfused, no edema. NEUROLOGICAL: Cranial nerves II through XII grossly intact. Normal speech, gait not observed. PSYCH: Normal mood, normal affect. SKIN: Warm, dry, normal turgor, no rashes or lesions noted. LABS Laboratory Results - last 24 hr 06/09/20 06/09/20 06/09/20 06:19 06:19 09:40 WBC 7.8 RBC 3.95 Hgb 11.2 Hct 34.0 MCV 86.1 MCH 28.3 MCHC 32.9 RDW 16.0 H Plt Count 432 D MPV 8.5 PT with INR 11.90 INR 1.01 Sodium 141 Potassium 3.4 L Chloride 106 Carbon Dioxide 29 Anion Gap 7 L BUN 16.1 Creatinine 1.2 Est GFR (CKD-EPI)AfAm 52.29 Est GFR (CKD-EPI)NonAf 45.11 Random Glucose 91 Calcium 9.1 Magnesium 2.1 Total Bilirubin 0.3 AST 35 ALT 43 Alkaline Phosphatase 170 H Total Protein 5.8 L Albumin 2.3 L HOSPITAL COURSE: Date of Admission:06/03/20 Date of Discharge: 06/09/20 Patient is a 74 year old female with history of cervical cancer, lymphoma, dementia, hypertension, hyperlipidemia, presents after episode of loss of consciousness. Admitted for sepsis secondary to urinary tract infection. ESBL E. Coli in blood, and urine cultures was treated with Ertapenem. Evaluated by Urology and underwent diuretic renal scan. Thickening of bladder wall noted, follow up with Urology for cystoscopy as outpatient. Outpatient Ertapenem IV infusions for 10 more days to complete 2 weeks total course. Discharge Summary Problems reviewed: Yes Reason For Visit: ACUTE KIDNEY INJURY Current Active Problems LUCILEL (acute kidney injury) (Acute) Syncope (Acute) UTI (urinary tract infection) (Acute) Condition: Stable - Instructions Diet, Activity, Other Instructions: You were admitted to the hospital for evaluation of syncopal episode with urinary tract infection. You were evaluated by the infectious disease physician, cook taco, and treated with IV antibiotics You will need to continue taking antibiotics through your IV PICC line. You will take antibiotic Ertapenem 0.5 Gram daily for 10 more days. You will receive further instruction and training with [employer] [employer]: [employer]. Continue taking your home medications as directed Follow up with your primary care physician within one -two days after discharge. A referral has been provided. Follow up with urologitst (Dr. Ferrell). A referral has been provided. There was thickening of your bladder wall, discuss this further at your follow up appointment. Follow up with your Oncologist within one week of discharge. Follow up with infectious disease physician Dr. Montoya within one week of discharge. A referral has been provided. Return to the nearest emergency department if you experience worsening symptoms, subjective fevers, chills, shortness of breath, chest pain, palpitations, abdominal pain, nausea, vomiting, any trauma or loss of consciousness. Referrals: José Miguel Montoya MD [Staff Physician] - Lukasz Ferrell MD [Staff Physician] - Rodolfo Montoya MD [Staff Physician] - Disposition: HOME - Home Medications Comprehensive Discharge Medication List: Ambulatory Orders Acetaminophen [Tylenol .Extra-Strength -] 500 mg PO Q4H PRN 05/17/15 Pantoprazole Sodium [Protonix] 40 mg PO DAILY #60 tablet. 05/19/15 oxyCODONE HCL [Roxicodone -] 10 mg PO Q6H PRN #60 tablet 05/19/15 Atorvastatin Ca [Lipitor] 40 mg PO HS 05/17/17 Ezetimibe [Zetia -] 10 mg PO DAILY 05/17/17 Tamsulosin HCl [Flomax -] 0.4 mg PO BID #60 cap.er.24h 01/24/20 Dronabinol 2.5 mg PO BID 06/07/20 Ertapenem Sodium [Invanz -] 0.5 gm IVPB DAILY 10 Days #5 vial 06/09/20 - Discharge Referral Referred to [facility] No ATTENDING PHYSICIAN STATEMENT I saw and evaluated the patient. I reviewed the resident's note and discussed the case with the resident. I agree with the resident's findings and plan as documented. SUBJECTIVE: OBJECTIVE: ASSESSMENT AND PLAN:
--- NOTE | 2020-06-09 12:41 | PN ---
Progress Note, Physician History of Present Illness: Pt seen and examined at bedside. She is awake and alert. She is eager to go home. - Current Medication List Current Medications: Active Medications Acetaminophen (Tylenol -) 650 mg PO Q6H PRN PRN Reason: Fever Or Pain Last Admin: 06/08/20 23:06 Dose: 650 mg Documented by: Heparin Sodium (Porcine) (Heparin -) 5,000 unit SQ TID [facility] Last Admin: 06/09/20 05:55 Dose: 5,000 unit Documented by: Ertapenem 0.5 gm/ Sodium (Chloride) 50 mls @ 100 mls/hr IVPB DAILY [facility] Last Admin: 06/09/20 10:49 Dose: 100 mls/hr Documented by: Tamsulosin HCl (Flomax -) 0.4 mg PO DAILY@0830 [facility] Last Admin: 06/09/20 10:49 Dose: 0.4 mg Documented by: - Objective Vital Signs: Vital Signs Temperature 98 F 06/09/20 09:00 Pulse Rate 86 06/09/20 09:00 Respiratory Rate 18 06/09/20 09:00 Blood Pressure 120/73 06/09/20 09:00 O2 Sat by Pulse Oximetry (%) 95 06/09/20 09:00 Constitutional: Yes: Calm Eyes: Yes: Conjunctiva Clear HENT: Yes: Atraumatic Cardiovascular: Yes: S1, S2 Respiratory: Yes: CTA Bilaterally Gastrointestinal: Yes: Soft Genitourinary: Yes: WNL Musculoskeletal: Yes: WNL Edema: No Neurological: Yes: Oriented Psychiatric: Yes: Oriented Labs: CBC, BMP 06/09/20 06:19 06/09/20 06:19 INR, PTT INR 1.01 (0.83-1.09) 06/09/20 09:40 Problem List - Problems (1) LUCILLE (acute kidney injury) Code(s): N17.9 - ACUTE KIDNEY FAILURE, UNSPECIFIED (2) Syncope Code(s): R55 - SYNCOPE AND COLLAPSE Qualifiers: Encounter type: initial encounter Assessment/Plan Current Medications Generic Name Dose Route Start Last Admin Trade Name Freq PRN Reason Stop Dose Admin Acetaminophen 650 mg 06/05/20 13:35 06/08/20 23:06 Tylenol - PO 650 mg Q6H PRN Administration Fever Or Pain Heparin Sodium (Porcine) 5,000 unit 06/03/20 03:30 06/09/20 05:55 Heparin - SQ 5,000 unit TID ISAIAH Administration Ertapenem 0.5 gm/ Sodium 50 mls @ 100 mls/hr 06/06/20 12:00 06/09/20 10:49 Chloride IVPB 100 mls/hr DAILY ISAIAH Administration Tamsulosin HCl 0.4 mg 06/03/20 08:30 06/09/20 10:49 Flomax - PO 0.4 mg DAILY@0830 ISAIAH Administration Impression 1. LUCILLE 2. hyperkalemia 3. dementia 4. htn 5. hld 6. hypernatremia 7. acidosis 8. urinary retention 9. left renal outlet obstruction Plan - renal function stable - pt eager to go home - will need outpt follow up - urology follow up for lasix scan findings
--- NOTE | 2020-06-09 13:27 | PN ---
Progress Note, Physician History of Present Illness: stable no new issues - Current Medication List Current Medications: Active Medications Acetaminophen (Tylenol -) 650 mg PO Q6H PRN PRN Reason: Fever Or Pain Last Admin: 06/08/20 23:06 Dose: 650 mg Documented by: Heparin Sodium (Porcine) (Heparin -) 5,000 unit SQ TID [facility] Last Admin: 06/09/20 05:55 Dose: 5,000 unit Documented by: Ertapenem 0.5 gm/ Sodium (Chloride) 50 mls @ 100 mls/hr IVPB DAILY [facility] Last Admin: 06/09/20 10:49 Dose: 100 mls/hr Documented by: Tamsulosin HCl (Flomax -) 0.4 mg PO DAILY@0830 [facility] Last Admin: 06/09/20 10:49 Dose: 0.4 mg Documented by: - Objective Vital Signs: Vital Signs Temperature 98 F 06/09/20 09:00 Pulse Rate 86 06/09/20 09:00 Respiratory Rate 18 06/09/20 09:00 Blood Pressure 120/73 06/09/20 09:00 O2 Sat by Pulse Oximetry (%) 95 06/09/20 09:00 Constitutional: Yes: No Distress, Calm Cardiovascular: Yes: S1 Respiratory: Yes: Regular, CTA Bilaterally Gastrointestinal: Yes: Normal Bowel Sounds, Soft Extremities: Yes: WNL Neurological: Yes: Alert, Oriented Psychiatric: Yes: Alert, Oriented Labs: CBC, BMP 06/09/20 06:19 06/09/20 06:19 INR, PTT INR 1.01 (0.83-1.09) 06/09/20 09:40 Assessment/Plan 74 F Sepsis 2/2 UTI HTN HLD Dementia h/o Cervical ca Neurogenic bladder Hydronephrosis gm negative bacteremia plan continue ertapenam patient need 2 weeks of abx
--- NOTE | 2020-06-09 14:31 | PN ---
Teaching Attending Note Name of Resident: Deandre Galeana ATTENDING PHYSICIAN STATEMENT I saw and evaluated the patient. I reviewed the resident's note and discussed the case with the resident. I agree with the resident's findings and plan as documented. SUBJECTIVE: Seen and examined at bedside. Patient very eager to go home. Results of diu retic renal scan noted. Per urology, the patient can get a stent either inpatient or outpatient. Patient currently undergoing trial of void. If patient able to void she can be discharged, if unable to void she can either be discharged with a Gaitan or remain inpatient. If discharged she will be sent home with IV antibiotics and a PICC line for a total of 14 days of IV ertapenem for ESBL bacteremia. OBJECTIVE Last Vital Signs Temp Pulse Resp BP Pulse Ox 98 F 90 18 123/80 94 L 06/08/20 09:00 06/08/20 09:00 06/08/20 09:00 06/08/20 09:00 06/08/20 09:00 PE: Per resident note Labs/Imaging: reviewed ASSESSMENT/PLAN 74-year-old female with a history of hypertension, hyperlipidemia, dementia, lymphoma, cervical cancer presents with syncopal episode and found to have UTI and bacteremia as well as bilateral hydronephrosis. See plan as above #ESBL Ecoli bacteremia likely secondary to urinary source ID on board: Appreciate recommendations 2 weeks IV ertapenem -to get PICC today #Bladder mural thickening and hydronephrosis with obstruction -urology on board -s/p diuretic renal scan: shows L outlet obstruction. Per urology, the patient can get a stent either inpatient or outpatient. -seen by retail loan officer onc per urology request: pt may f/u as an outpatient #Hypernatremia:resolved #LUCILLE: Improving Dispo: home this afternoon pending trial of void
[2020-06-09 18:00] VITALS: BP 115/75; PULSE 89; TEMP 98.1
== END 2020-06-09 19:02 | disposition home or self-care (01) | DRG 872 ==
LOC: JER 18:49 → JERBED 06-03 00:24 → UNDOADMIN 06-03 00:24 → J4W 06-03 18:27
PROVIDERS: ADMIT Hospitalist; ATTEND Internal Medicine
PROC: 02HV33Z Insertion of Infusion Device into Superior Vena Cava, Percutaneous Approach (ICD-10-PCS; principal; 2020-06-09)
PROC: B548ZZA Ultrasonography of Superior Vena Cava, Guidance (ICD-10-PCS; 2020-06-09)
DX: A41.51 Sepsis due to Escherichia coli [E. coli] (principal); N17.9 Acute kidney failure, unspecified; N39.0 Urinary tract infection, site not specified; N13.30 Unspecified hydronephrosis; E87.2 Acidosis; E87.0 Hyperosmolality and hypernatremia; J90 Pleural effusion, not elsewhere classified; I10 Essential (primary) hypertension; E78.5 Hyperlipidemia, unspecified; R55 Syncope and collapse; F03.90 Unspecified dementia, unspecified severity, without behavioral disturbance, psychotic disturbance, mood disturbance, and anxiety; Z86.19 Personal history of other infectious and parasitic diseases; E86.0 Dehydration; C53.9 Malignant neoplasm of cervix uteri, unspecified; N31.9 Neuromuscular dysfunction of bladder, unspecified; E83.42 Hypomagnesemia; K44.9 Diaphragmatic hernia without obstruction or gangrene; E87.6 Hypokalemia
CPT/HCPCS: 36415; 36569; 70450-TC; 71045-TC-FY; 72125-TC; 74176-TC; 76775-TC; 76856-TC; 77001-TC-FY; 78708-TC; 80048; 80053; 81003; 82550; 82553; 83605; 83690; 83735; 84100; 84484; 85025; 85027; 85610; 87040; 87086; 87186; 93005; 93010; 93306-TC; 93880-TC; 94010; 97116-GP; 97162-GP; 99285-25; A9562; C1751; J0131; J1644; U0003